=== PATIENT | male | born 1960 | race Two or more races ===

== ENCOUNTER 2019-11-21 00:44 | Inpatient (IN) | payer OTHER, MEDICAID ==
[~2019-11-21] VITALS: Ht 144.8 cm; Wt 135.2 kg
[2019-11-21] MEDS ORDERED: IV NS 0.9% 500 ML BAG IV ONE (01:00)
--- NOTE | 2019-11-21 01:10 | NUR ---
BLOOD DRAWN AND SENT TO LAB
[2019-11-21 01:18] LABS: BASOPHILS # (AUTO) 0.1 /CMM (0.0-0.2); BASOPHILS % (AUTO) 0.8 % (0.0-2.0); EOSINOPHILS % (AUTO) 5.1 % (0.0-6.0); HEMATOCRIT 38 % (39-51); HEMOGLOBIN 12.2 g/dL (13.5-17.5); LYMPHOCYTES # (AUTO) 4.1 /CMM (0.8-4.8); LYMPHOCYTES % (AUTO) 35.8 % (20.0-44.0); MEAN CORPUSCULAR HGB CONC 32 g/dl (31.0-36.0); MEAN CORPUSCULAR VOLUME 78 fL (80-96); MONOCYTES # (AUTO) 0.9 /CMM (0.1-1.30); MONOCYTES % (AUTO) 8.1 % (2.0-12.0); NEUTROPHILS # (AUTO) 5.8 /CMM (1.8-8.9); NEUTROPHILS % (AUTO) 50.2 % (43.0-81.0); PLATELET COUNT (AUTO) 274 /CMM (150-450); RED BLOOD CELL COUNT(AUTO) 4.88 MIL/uL (4.5-6.0); WHITE BLOOD COUNT (AUTO) 11.5 K/uL (4.3-11.0)
--- NOTE | 2019-11-21 01:18 | NUR ---
XRAY AT BEDSIDE
[2019-11-21 01:27] LABS: CALCIUM, SERUM 10.7 mg/dL (8.5-10.1); CARBON DIOXIDE 28 mmol/L (21-32); CHLORIDE 104 mmol/L (98-107); CREATININE 0.8 mg/dL (0.6-1.3); GLUCOSE 170 mg/dL (74-106); POTASSIUM 4.1 mmol/L (3.5-5.1); SODIUM SERUM 137 mmol/L (136-145); UREA NITROGEN, BLOOD 13 mg/dL (7-18)
[2019-11-21 01:41] LABS: ALANINE AMINOTRANSFERASE 16 U/L (12-78); ALBUMIN 2.8 g/dL (3.4-5.0); ALKALINE PHOSPHATASE 71 U/L (46-116); ASPARTATE AMINOTRANSFERASE 10 U/L (15-37); B-TYPE NATRIURETIC PEPTIDE 219 PG/ML (0-125); BILIRUBIN,TOTAL 0.2 mg/dL (0.2-1.0); TOTAL PROTEIN, SERUM 6.6 g/dL (6.4-8.2)
--- NOTE | 2019-11-21 01:42 | NUR ---
PATIENT CAME TO ER BED 9 C/O SUBSTERNAL CHEST PAIN 45 SQUEEGEER AND FORMER. PATIENT CAME FROM [facility] FOR NONRADIATING CHEST PAIN 06/08 SHARP. AAOX4. NO SOB. BREATHING EVENLY AND UNLABORED CONNECTED TO HEART MONITORING.
[2019-11-21] MEDS ORDERED: MORPHINE SULFATE INJ 4 MG/ML DISP.SYRIN ONE (01:55)
--- NOTE | 2019-11-21 01:56 | NUR ---
ROOM GIVEN [id number]
--- NOTE | 2019-11-21 02:23 | NUR ---
REPORT GIVEN TO RIGO FOR ZIYAD.
[2019-11-21] MEDS ORDERED: MORPHINE SULFATE INJ 4 MG/ML DISP.SYRIN IV ONE (02:30)
[2019-11-21] MEDS ORDERED: TAMS-12 GT (02:44)
[2019-11-21] MEDS ORDERED: ERTA1VIA4 IJ (02:44)
[2019-11-21] MEDS ORDERED: LEVE500T9 PO (02:44)
[2019-11-21] MEDS ORDERED: LISPRO SUBCUT (02:44)
[2019-11-21] MEDS ORDERED: OXYB5TAB16 PO (02:44)
[2019-11-21] MEDS ORDERED: ASPI-605 PO (02:44)
[2019-11-21] MEDS ORDERED: GLARGINE SUBCUT (02:44)
[2019-11-21] MEDS ORDERED: LEVO150T8 PO (02:44)
[2019-11-21] MEDS ORDERED: FAMO20TA8 PO (02:44)
[2019-11-21] MEDS ORDERED: DIVA500T2 GT (02:44)
[2019-11-21] MEDS ORDERED: CARV12.52 PO (02:44)
[2019-11-21] MEDS ORDERED: HYDR-4076 PO (02:44)
[2019-11-21 03:30] VITALS: BP 138/66
[2019-11-21] MEDS ORDERED: ONDANSETRON HCL/PF 4 MG/2 ML VIAL IVP PRN (03:30)
[2019-11-21] MEDS ORDERED: DOCUSATE SODIUM 100 MG CAPSULE PO PRN (03:30)
[2019-11-21] MEDS ORDERED: NITROGLYCERIN 0.4 MG/TAB BOTTLE SL PRN (03:30)
[2019-11-21] MEDS ORDERED: MAG HYDROX/AL HYDROX/SIMETH 30 ML UDC PO PRN (03:30)
--- NOTE | 2019-11-21 03:30 | NUR ---
AEROSPACE CONTROL AND WARNING SYSTEMS OPENING/ADMITTING NOTES RECEIVED PATIENT FROM ER VIA GURNEY SAFELY TRANSFERRED TO BED, AWAKE ALERT AND ORIENTED X 4, RESPIRATIONS EVEN AND UNLABORED WITH EQUAL RISE AND FALL OF CHEST, APPEARS TO BE COMFORTABLE AT THIS TIME, NO C/O PAIN AT THIS TIME, NO DISTRESS PRESENT, IV SITE TO RIGHT WRIST #20 G INTACT AND PATENT, NO REDNESS, NO INFILTRATION PRESENT, GOOD CATHETER INTACT AND DRAINING WELL, URINE YELLOW/CT WITH SEDIMENTS.ON ENDODONTICS DENTIST SR 74.BODY ASSESSMENT DONE PICTURES PLACED IN CHART, BELONGINGS LIST DONE 2 CALL PHONES, MONEY WALLET AND SCISSORS PLACED IN SAFE BOX, RECEIPT PLACED IN CHART PATIENT AWARE, ORIENTED TO STAFF AND CALL LIGHT AND KEPT WITHIN REACH, FLUIDS OFFERED, MD ORDERS FOLLOWED MED RECON IN PLACE. LOW BED AND LOCKED, BED ALARM IN PLACE, PATIENT CLEAN AND KEPT COMFORTABLE WILL CONTINUE TO MONITOR.
[2019-11-21 04:00] VITALS: BP 138/66
[2019-11-21] MEDS: MORPHINE SULFATE INJ 2 MG/ML DISP.SYRIN IV PRN ×4 (05:17→23:33)
--- NOTE | 2019-11-21 05:17 | NUR ---
consumer attorney notes patient complaint of pain to chest generalized area no distress present vs wnl. states head neck, back, shoulders states " can i have morphine 10/10" morphine prn given as ordered lights dimmed will continue to monitor for comfort.
--- NOTE | 2019-11-21 06:56 | NUR ---
MANAGER COMMERCIAL SALES CLOSING NOTES PATIENT AWAKE ALERT AND ORIENTED X 4, RESPIRATIONS EVEN AND UNLABORED WITH EQUAL RISE AND FALL OF CHEST, APPEARS TO BE COMFORTABLE AT THIS TIME, NO C/O PAIN AT THIS TIME, NO DISTRESS PRESENT, IV SITE TO RIGHT WRIST #20 G INTACT AND PATENT, NO REDNESS, NO INFILTRATION PRESENT, GOOD CATHETER INTACT AND DRAINING WELL, URINE YELLOW/CT WITH SEDIMENTS.ON TIE IN HAND SR WITH 1ST DEGREE AC BLOCK 65.CALL LIGHT KEPT WITHIN REACH, FLUIDS OFFERED, LOW BED AND LOCKED, BED ALARM IN PLACE, PATIENT CLEAN AND KEPT COMFORTABLE WILL CONTINUE TO MONITOR AND ENDORSE TO NEXT SHIFT NO CHANGES SINCE ADMISSION.
[2019-11-21] MEDS ORDERED: LEVOTHYROXINE SODIUM 150 MCG TABLET PO SCH (07:30)
[2019-11-21 08:00] VITALS: BP 139/71
[2019-11-21] MEDS: INSULIN ASPART/LISPRO 100 UNIT/ML CARTRIDGE SQ SCH ×3 (08:00→18:01)
[2019-11-21 08:22] LABS: CALCIUM, SERUM 10.4 mg/dL (8.5-10.1); CREATININE 0.7 mg/dL (0.6-1.3); MAGNESIUM 1.7 mg/dL (1.8-2.4); PHOSPHORUS 2.6 mg/dL (2.5-4.9); POTASSIUM 4.1 mmol/L (3.5-5.1)
[2019-11-21 08:27] LABS: BASOPHILS # (AUTO) 0.1 /CMM (0.0-0.2); BASOPHILS % (AUTO) 0.8 % (0.0-2.0); EOSINOPHILS % (AUTO) 5.5 % (0.0-6.0); HEMATOCRIT 38 % (39-51); HEMOGLOBIN 12.2 g/dL (13.5-17.5); LYMPHOCYTES # (AUTO) 4.1 /CMM (0.8-4.8); LYMPHOCYTES % (AUTO) 37.5 % (20.0-44.0); MEAN CORPUSCULAR HGB CONC 32 g/dl (31.0-36.0); MEAN CORPUSCULAR VOLUME 78 fL (80-96); MONOCYTES % (AUTO) 9.3 % (2.0-12.0); NEUTROPHILS # (AUTO) 5.1 /CMM (1.8-8.9); NEUTROPHILS % (AUTO) 46.9 % (43.0-81.0); PLATELET COUNT (AUTO) 241 /CMM (150-450); RED BLOOD CELL COUNT(AUTO) 4.87 MIL/uL (4.5-6.0); WHITE BLOOD COUNT (AUTO) 10.8 K/uL (4.3-11.0)
[2019-11-21 08:58] LABS: APPEARANCE,URINE CLEAR (CLEAR); BILIRUBIN,URINE NEGATIVE (NEGATIVE); BLOOD, URINE SMALL Ery/uL (NEGATIVE); COLOR,URINE YELLOW (YELLOW); KETONES,URINE NEGATIVE (NEGATIVE); LEUKOCYTE ESTERASE ,URINE NEGATIVE (NEGATIVE); NITRITE, URINE NEGATIVE (NEGATIVE); PH,URINE 6.5 (5.0-8.0); PROTEIN,URINE NEGATIVE (NEGATIVE); UGLUCOSE NEGATIVE (NEGATIVE); UROBILINOGEN,URINE 0.2 EU/dL (0.2)
[2019-11-21] MEDS ORDERED: CARVEDILOL 12.5 MG TABLET PO SCH (09:00)
[2019-11-21] MEDS: LOSARTAN POTASSIUM 50 MG TABLET PO SCH (09:00)
[2019-11-21] MEDS: hydrALAZINE HCL 25 MG TABLET PO SCH ×3 (09:00→17:00)
[2019-11-21] MEDS: INSULIN GLARGINE, 100 UNIT/ML CARTRIDGE SQ SCH ×2 (09:00→18:07)
[2019-11-21 09:03] LABS: THYROID STIMULATING HORMONE 10.674 uIU/mL (0.358-3.74)
[2019-11-21 09:08] LABS: BACTERIA,URINE Rare /HPF (None Seen); SQUAMOUS EPITHELIAL CELL,UR Rare /HPF (None Seen); WBC,URINE 0-2 /HPF (0-3)
[2019-11-21 09:10] LABS: IRON, SERUM 30 ug/dl (50-175); TOTAL IRON BINDING CAPACITY 219 ug/dl (250-450)
--- NOTE | 2019-11-21 09:14 | NUR ---
WOUND CARE CONSULT: PT PRESENTS WITH RASHES TO SKIN FOLDS AND BUTTOCKS, DRY SCAB BELOW LEFT EAR AND CRUSTED WOUND TO RT CHEST, PRESENT ON ADMISSION. BILATERAL ABOVE KNEE AMPUTATION SCARS NOTED. RECOMMEND SURGICAL CONSULT FOR RT CHEST WOUND. DR MARIE NOTIFIED OF CONSULT REQUEST. PT ON ROSIE ISOFLEX LOW AIRLOSS BED AND STATES BED IS COMFORTABLE AND REFUSES BARIATRIC BED. LATISHA COPE NOTED. PT IS CONTINENT AT THIS TIME WITH GOOD. RECOMMENDATIONS MADE FOR SKIN PROTECTION. DISCUSSED WITH NURSING STAFF. DEFER TO SURGICAL TEAM FOR WOUND TREATMENT PLAN. WILL SEE PRN. Addendum: 11/21/19 at 0917 by EMELINA LEON WNDNU Amended: Links added.
[2019-11-21 09:24] LABS: FERRITIN 50 ng/mL (8-388)
[2019-11-21] MEDS ORDERED: Z GUARD REMEDY 2 OZ OINT TP PRN (09:30)
[2019-11-21] MEDS: Magnesium 1GM/D5W 100ML PREMIX 100 ML IV SCH ×2 (09:45→11:18)
[2019-11-21] MEDS: BLOOD SUGAR DIAGNOSTIC 1 EACH STRIP IN SCH ×3 (09:52→17:45)
[2019-11-21] MEDS: Z GUARD REMEDY 2 OZ OINT TP SCH (11:24)
[2019-11-21] MEDS: TAMSULOSIN 0.4 MG CAP.SR.24H GT SCH (11:35)
[2019-11-21] MEDS: DIVALPROEX SODIUM 125 MG TABLET.DR PO SCH ×3 (11:35→18:00)
[2019-11-21] MEDS: LEVETIRACETAM (250 MG) 250 MG TABLET PO SCH ×2 (11:35→21:18)
[2019-11-21] MEDS: OXYBUTYNIN CHLORIDE 5 MG TABLET PO SCH ×2 (11:35→18:00)
[2019-11-21] MEDS: ASPIRIN 81 MG TAB.CHEW PO SCH (11:35)
[2019-11-21] MEDS: FAMOTIDINE (20 MG) 20 MG TABLET PO SCH ×2 (11:35→18:00)
[2019-11-21] MEDS: CARVEDILOL 12.5 MG TABLET PO SCH ×2 (11:36→18:00)
[2019-11-21] MEDS: LEVOTHYROXINE SODIUM 75 MCG TABLET PO SCH ×2 (12:05→12:55)
[2019-11-21] MEDS ORDERED: Magnesium 1GM/D5W 100ML PREMIX 100 ML IV SCH (13:30)
[2019-11-21 16:00] VITALS: BP 115/74
[2019-11-21] MEDS: NEOMY SULF/BACITRAC ZN/POLY 15 GM TUBE TP SCH (17:58)
[2019-11-21] MEDS: NYSTATIN TOP POWDER 15 GM BOTTLE TP SCH ×2 (17:59→18:08)
--- NOTE | 2019-11-21 18:30 | NUR ---
medicated x1 with morphine for pain.mg. replacement for low mg.
--- NOTE | 2019-11-21 19:20 | NUR ---
RN OPENING NOTES Received patient A/O x4, awake, on RA. With complaints of generalized pain 10/10. Repositioned comfortably. Provided snacks as patient demands. Discussed to patient the POC, patient verbalized understanding. Patient refused to have his blood sugar checked within the night. On tele monitor with 1st degree AV block noted. Kept on bed clean, dry and comfortable. Call light within easy reach. Will continue to monitor.
[2019-11-21 20:00] VITALS: BP 143/80
[2019-11-21] MEDS: SIMVASTATIN 20 MG TABLET PO SCH (21:18)
--- NOTE | 2019-11-21 22:14 | NUR ---
RN NOTES Patient asleep. Report given to HAFSA Martinez for ZIYAD.
--- NOTE | 2019-11-21 22:16 | NUR ---
Bedside report recieved from jorge tristan. will assume care. patient seen resting in bed with eyes closed bed down locked srx2. call light seen within reach.
[2019-11-22] VITALS: BP 130/59
--- NOTE | 2019-11-22 01:19 | NUR ---
MS RN NOTE ADMINISTERED PRN ZOFRRAN 4NG FOR C/O NAUSEA. WILL CONTINUE TO MONITOR.
[2019-11-22] MEDS: MORPHINE SULFATE INJ 2 MG/ML DISP.SYRIN IV PRN ×5 (03:46→20:29)
[2019-11-22 04:00] VITALS: BP 127/73
[2019-11-22 07:07] LABS: BASOPHILS # (AUTO) 0.1 /CMM (0.0-0.2); BASOPHILS % (AUTO) 1.1 % (0.0-2.0); EOSINOPHILS % (AUTO) 5.7 % (0.0-6.0); HEMATOCRIT 37 % (39-51); HEMOGLOBIN 12.1 g/dL (13.5-17.5); LYMPHOCYTES # (AUTO) 3.8 /CMM (0.8-4.8); MEAN CORPUSCULAR HGB CONC 33 g/dl (31.0-36.0); MEAN CORPUSCULAR VOLUME 77 fL (80-96); MONOCYTES % (AUTO) 7.8 % (2.0-12.0); NEUTROPHILS # (AUTO) 6.6 /CMM (1.8-8.9); NEUTROPHILS % (AUTO) 54.4 % (43.0-81.0); PLATELET COUNT (AUTO) 257 /CMM (150-450); RED BLOOD CELL COUNT(AUTO) 4.82 MIL/uL (4.5-6.0); WHITE BLOOD COUNT (AUTO) 12.2 K/uL (4.3-11.0)
[2019-11-22] MEDS: LEVOTHYROXINE SODIUM 75 MCG TABLET PO SCH (07:12)
--- NOTE | 2019-11-22 07:22 | NUR ---
TELE/RN OPENING NOTE Patient is resting in bed, A/O x4, showing no signs of acute distress or SOB, breathing is even and unlabored, stable on RA. Tele monitor first degree AV block 67. BLE AKA noted. IV line in the right wrist #20g is clean and intact s/l. Bed is in lowest position, side rails x3 in upright position, call light is within reach and patient is aware of how to call for assistance when needed. Fall, safety, aspiration and seizure precautions enforced. Will continue with plan of care.
[2019-11-22] MEDS: INSULIN ASPART/LISPRO 100 UNIT/ML CARTRIDGE SQ SCH ×3 (07:23→17:14)
[2019-11-22 07:26] LABS: CALCIUM, SERUM 10.1 mg/dL (8.5-10.1); CREATININE 0.7 mg/dL (0.6-1.3); MAGNESIUM 1.8 mg/dL (1.8-2.4); POTASSIUM 4.2 mmol/L (3.5-5.1)
[2019-11-22] MEDS: BLOOD SUGAR DIAGNOSTIC 1 EACH STRIP IN SCH ×3 (08:36→17:14)
[2019-11-22] MEDS: LEVETIRACETAM (250 MG) 250 MG TABLET PO SCH ×2 (08:42→21:18)
[2019-11-22] MEDS: TAMSULOSIN 0.4 MG CAP.SR.24H GT SCH (08:42)
[2019-11-22] MEDS: FAMOTIDINE (20 MG) 20 MG TABLET PO SCH ×2 (08:42→17:08)
[2019-11-22] MEDS: hydrALAZINE HCL 25 MG TABLET PO SCH ×3 (08:42→17:08)
[2019-11-22] MEDS: CARVEDILOL 12.5 MG TABLET PO SCH ×2 (08:43→17:08)
[2019-11-22] MEDS: OXYBUTYNIN CHLORIDE 5 MG TABLET PO SCH ×2 (08:43→17:08)
[2019-11-22] MEDS: LOSARTAN POTASSIUM 50 MG TABLET PO SCH (08:43)
[2019-11-22] MEDS: ASPIRIN 81 MG TAB.CHEW PO SCH (08:43)
[2019-11-22] MEDS: DIVALPROEX SODIUM 125 MG TABLET.DR PO SCH ×3 (08:43→17:08)
[2019-11-22] MEDS: INSULIN GLARGINE, 100 UNIT/ML CARTRIDGE SQ SCH ×2 (08:46→17:16)
[2019-11-22] MEDS: NEOMY SULF/BACITRAC ZN/POLY 15 GM TUBE TP SCH (08:49)
[2019-11-22] MEDS: NYSTATIN TOP POWDER 15 GM BOTTLE TP SCH ×2 (08:49→17:15)
[2019-11-22] MEDS: Z GUARD REMEDY 2 OZ OINT TP SCH (08:50)
[2019-11-22] MEDS ORDERED: PNEUMOCOCCAL 23-VAL P-SAC VAC 0.5 ML VIAL SQ ONE ×2 (11:30→12:00)
[2019-11-22] MEDS ORDERED: INFLUENZA VACCINE 2019-20 0.5 ML DISP.SYRIN IM ONE (11:30)
[2019-11-22 16:00] VITALS: BP 123/76
--- NOTE | 2019-11-22 19:36 | NUR ---
CORRECTIONS SERGEANT NOTES PATIENT RECEIVED IN BED, ALERT AND ORIENTED X4. ON ROOM AIR, PRESENTING NO SIGNS OF RESPIRATORY DISTRESS, WITH EVEN NON-LABORED BREATHING. IV ACCESS INTACT AND PATENT. PATIENT ON PHYSICAL THERAPY ASSISTANT INSTRUCTOR, 70'S. PATIENT GOOD CATHETER IN PLACE WITH YELLOW URINE OUTPUT. PROVIDED COMFORT MEASURES TO PATIENT. SAFETY PRECAUTIONS AND FALL PRECAUTIONS IMPLEMENTED WITH THE BED IN THE LOWEST POSITION, BILATERAL SIDE RAILS UP, BED ALARM ON, BED LOCKED, AND CALL LIGHT WITHIN EASY REACH OF THE PATIENT. WILL CONTINUE TO MONITOR PATIENT.
--- NOTE | 2019-11-22 19:44 | NUR ---
TELE/RN CLOSING NOTE Patient is resting in bed, A/O x4, showing no signs of acute distress or SOB, breathing is even and unlabored, stable on RA. Tele monitor SR 80s. BLE AKA noted. IV line in the right wrist #20g is clean and intact s/l. All patient needs met all due meds given. DC order back to [facility] at 9pm. DC instructions provided, patient verbalized understanding. Belongings obtained from [employer]. Bed is in lowest position, side rails x3 in upright position, call light is within reach and patient is aware of how to call for assistance when needed. Fall, safety, aspiration and seizure precautions enforced. Will endorse to stage driver. .
[2019-11-22 20:28] VITALS: BP 118/63
--- NOTE | 2019-11-22 20:30 | NUR ---
RN NOTES PATIENT COMPLAIN OF 10/10 GENERALIZED ACHING, SHARP PAIN. PATIENT'S VITALS ARE BLOOD PRESSURE OF 118/63, PULSE 70, RESPIRATORY RATE 20, SPO2 98%. ADMINISTERED 2mg OF MORPHINE PRN PAIN MEDICATION, WILL REASSESS AND WILL CONTINUE TO MONITOR PATIENT PAIN LEVEL.
[2019-11-22] MEDS: SIMVASTATIN 20 MG TABLET PO SCH (21:18)
--- NOTE | 2019-11-22 23:50 | NUR ---
MS RN NOTES PATIENT LEFT UNIT AT 2345 VIA [employer] [facility]. PATIENT'S ID BAND, IV ACCESS REMOVED. DISCHARGE INSTRUCTIONS IMPLEMENTED. PER DAYSHIFT ENDORSED, GAVE REPORT TO NEERAJ AQUINO. PATIENT'S LEFT WITH ALL BELONGINGS.
[2019-11-30] MEDS ORDERED: LEVO500T75 PO (08:45)
== END 2019-11-22 23:45 | DRG 204 ==
LOC: ER 00:45 → TELE 02:00 → MED 11-22 21:38
PROVIDERS: ADMIT Family Medicine; ATTEND Family Medicine
DX: R07.81 Pleurodynia (principal); R53.2 Functional quadriplegia; E44.0 Moderate protein-calorie malnutrition; Z68.44 Body mass index [BMI] 60.0-69.9, adult; D72.829 Elevated white blood cell count, unspecified; I10 Essential (primary) hypertension; D50.9 Iron deficiency anemia, unspecified; E83.42 Hypomagnesemia; E03.9 Hypothyroidism, unspecified; E11.65 Type 2 diabetes mellitus with hyperglycemia; R56.9 Unspecified convulsions; E66.01 Morbid (severe) obesity due to excess calories; L98.8 Other specified disorders of the skin and subcutaneous tissue; L30.4 Erythema intertrigo; S20.312A Abrasion of left front wall of thorax, initial encounter; S20.311A Abrasion of right front wall of thorax, initial encounter; X58.XXXA Exposure to other specified factors, initial encounter; Y92.89 Other specified places as the place of occurrence of the external cause; Z89.612 Acquired absence of left leg above knee; Z89.611 Acquired absence of right leg above knee; E83.52 Hypercalcemia; E11.51 Type 2 diabetes mellitus with diabetic peripheral angiopathy without gangrene; R10.9 Unspecified abdominal pain; G47.33 Obstructive sleep apnea (adult) (pediatric)
CPT/HCPCS: 36415; 71045-TC; 80048-TC; 80061-TC; 80076-TC; 80164-TC; 81000-TC; 82728-TC; 82962-TC; 83540-TC; 83735-TC; 83880; 84100-TC; 84443-TC; 84484-TC; 85025-TC; 85730-TC; 87081-TC; 90732; 93307-TC; G0378; J1815; J2270; J2405; J3475; J7040; J7050; Q2036

== ENCOUNTER 2019-11-28 07:10 | Inpatient (IN) | payer OTHER ==
[~2019-11-28] VITALS: Ht 139.7 cm; Wt 131.6 kg
[~2019-11-28 07:10] MED LIST: ASPI-605 PO; CARV12.52 PO; DIVA500T2 GT; ERTA1VIA4 IJ; FAMO20TA8 PO; GLARGINE SUBCUT; HYDR-4076 PO; LEVE500T9 PO; LEVO150T8 PO; LISPRO SUBCUT; OXYB5TAB16 PO; TAMS-12 GT
--- NOTE | 2019-11-28 07:30 | NUR ---
[id number] FROM [facility] C/O MIDSTERNAL CHEST PAIN RADIATING TO R ARM. +DRY COUGH, -FEVER, +GENERALIZED BODY ACHE. PATIENT A/OX4, NOTED WITH COUGHING, NON-PRODUCTIVE. NEEDS ATTENDED. ATTACHED TO THE QUILL STRIPPER.
[2019-11-28] MEDS ORDERED: ONDANSETRON HCL/PF 4 MG/2 ML VIAL ONE (07:39)
[2019-11-28] MEDS ORDERED: MORPHINE SULFATE INJ 4 MG/ML DISP.SYRIN ONE ×2 (07:39→11:43)
[2019-11-28] MEDS ORDERED: ONDANSETRON HCL/PF 4 MG/2 ML VIAL IVP ONE (08:00)
[2019-11-28] MEDS ORDERED: MORPHINE SULFATE INJ 2 MG/ML DISP.SYRIN IV ONE (08:00)
--- NOTE | 2019-11-28 08:26 | NUR ---
LINE STARTED ON R AC G 20, BLOOD AND CULTURES DRAWN FROM LINE AND SENT TO LAB
[2019-11-28 09:04] LABS: BASOPHILS # (AUTO) 0.1 /CMM (0.0-0.2); EOSINOPHILS % (AUTO) 4.7 % (0.0-6.0); HEMATOCRIT 40 % (39-51); HEMOGLOBIN 12.7 g/dL (13.5-17.5); LYMPHOCYTES # (AUTO) 3.8 /CMM (0.8-4.8); LYMPHOCYTES % (AUTO) 26.1 % (20.0-44.0); MEAN CORPUSCULAR HGB CONC 32 g/dl (31.0-36.0); MEAN CORPUSCULAR VOLUME 78 fL (80-96); MONOCYTES # (AUTO) 1.2 /CMM (0.1-1.30); MONOCYTES % (AUTO) 7.9 % (2.0-12.0); NEUTROPHILS # (AUTO) 8.9 /CMM (1.8-8.9); NEUTROPHILS % (AUTO) 60.3 % (43.0-81.0); PLATELET COUNT (AUTO) 328 /CMM (150-450); RED BLOOD CELL COUNT(AUTO) 5.11 MIL/uL (4.5-6.0); WHITE BLOOD COUNT (AUTO) 14.7 K/uL (4.3-11.0)
[2019-11-28 09:13] LABS: CALCIUM, SERUM 10.6 mg/dL (8.5-10.1); CARBON DIOXIDE 26 mmol/L (21-32); CHLORIDE 103 mmol/L (98-107); CREATININE 1.1 mg/dL (0.6-1.3); GLUCOSE 167 mg/dL (74-106); SODIUM SERUM 137 mmol/L (136-145); UREA NITROGEN, BLOOD 17 mg/dL (7-18)
[2019-11-28 09:25] LABS: ALBUMIN 2.9 g/dL (3.4-5.0); ALKALINE PHOSPHATASE 82 U/L (46-116); ASPARTATE AMINOTRANSFERASE 9 U/L (15-37); B-TYPE NATRIURETIC PEPTIDE 111 PG/ML (0-125); BILIRUBIN,DIRECT 0.1 mg/dL (0.0-0.2); BILIRUBIN,TOTAL 0.3 mg/dL (0.2-1.0); TOTAL PROTEIN, SERUM 7.2 g/dL (6.4-8.2)
[2019-11-28 09:34] LABS: ALANINE AMINOTRANSFERASE 16 U/L (12-78)
[2019-11-28 10:13] LABS: APPEARANCE,URINE Clear (CLEAR); BILIRUBIN,URINE Negative (NEGATIVE); BLOOD, URINE Trace-lysed Ery/uL (NEGATIVE); COLOR,URINE Yellow (YELLOW); KETONES,URINE Negative (NEGATIVE); LEUKOCYTE ESTERASE ,URINE Trace (NEGATIVE); NITRITE, URINE Negative (NEGATIVE); PROTEIN,URINE >=300 mg/dl (NEGATIVE); UGLUCOSE Negative (NEGATIVE); UROBILINOGEN,URINE 0.2 EU/dL (0.2)
[2019-11-28 10:18] LABS: BACTERIA,URINE Few /HPF (None Seen); HYALINE CASTS, URINE Few /LPF (None Seen); SQUAMOUS EPITHELIAL CELL,UR None Seen /HPF (None Seen)
--- NOTE | 2019-11-28 10:28 | NUR ---
PATIENT RESTING, NO DISTRESS NOTED.
[2019-11-28] MEDS ORDERED: CEFTRIAXONE 1GM BAG (ER ONLY) 50 ML IV ONE ×2 (10:30→10:34)
--- NOTE | 2019-11-28 11:16 | NUR ---
recieved auth from regal per admitting
--- NOTE | 2019-11-28 11:25 | NUR ---
CALLED NURSING SUP FOR BED
[2019-11-28] MEDS ORDERED: MORPHINE SULFATE INJ 4 MG/ML DISP.SYRIN IV ONE (12:00)
--- NOTE | 2019-11-28 12:24 | NUR ---
REPORT GIVEN TO MONA PEREYRA FOR ZIYAD.
--- NOTE | 2019-11-28 12:54 | NUR ---
PATIENT TRANSFERRED TO ROOM 105, IN STABLE CONDITION. NO DISTRESS NOTED.
[2019-11-28 14:00] VITALS: BP 111/62
[2019-11-28] MEDS ORDERED: LORAZEPAM INJ 2 MG/ML VIAL IV ONE (14:00)
[2019-11-28] MEDS ORDERED: OLANZAPINE 10 MG VIAL IM ONE (14:00)
--- NOTE | 2019-11-28 14:20 | NUR ---
RN NOTE RAPID RESPONSE CALLED AT 1330 FOR PT SEIZURE. PRIMARY RN AT BEDSIDE WITH JO WELLS, ASSISTING PT., DR GOLDEN CONTACTED, ORDER FOR ZYPREXA IM AND ATIVAN IV OBTAINED, PT HAD SEIZURE FOR 30 MIN. SIDE RAILS PADDED, OXYGEN VIA NONREBREATHER MASK APPLIED, VS: 99.8F, AX, HR 98, BP 111/62MMHG, RR 22, SATURATION 98-100%. BG =129, PT DID NOT VOMIT, PT ASSISTED TO THE LEFT SIDE. POST SEIZURE PT AOX3, CO SEVERE PAIN IN NECK AND HEAD, ARMS, TIRED. DR GOLDEN ASSESSED HIM POST SEIZURE. PT ABLE TO SWALLOW, AND TALK.
[2019-11-28] MEDS ORDERED: LORAZEPAM 1 MG TABLET PO PRN (14:30)
[2019-11-28] MEDS: MORPHINE SULFATE INJ 4 MG/ML DISP.SYRIN IV PRN ×2 (14:39→21:00)
[2019-11-28] MEDS ORDERED: CLONIDINE HCL 0.1 MG TABLET PO PRN (15:00)
[2019-11-28] MEDS ORDERED: DEXTROSE 50%-WATER 50 ML DISP.SYRIN IV PRN (15:00)
[2019-11-28] MEDS ORDERED: LEVOFLOXACIN (500MG) 500 MG TABLET PO SCH (15:00)
[2019-11-28 16:00] VITALS: BP 112/52
[2019-11-28] MEDS: FAMOTIDINE (20 MG) 20 MG TABLET PO SCH (16:44)
[2019-11-28] MEDS: DIVALPROEX SODIUM 125 MG TABLET.DR PO SCH (16:44)
[2019-11-28] MEDS: CARVEDILOL 12.5 MG TABLET PO SCH (16:47)
[2019-11-28] MEDS: OXYBUTYNIN CHLORIDE 5 MG TABLET PO SCH (16:47)
[2019-11-28] MEDS: hydrALAZINE HCL 25 MG TABLET PO SCH (16:55)
[2019-11-28] MEDS: BLOOD SUGAR DIAGNOSTIC 1 EACH STRIP VI SCH ×2 (17:05→20:53)
[2019-11-28] MEDS: INSULIN ASPART/LISPRO 100 UNIT/ML CARTRIDGE SQ SCH (17:49)
--- NOTE | 2019-11-28 19:30 | NUR ---
DEVELOPER ADVOCATE OPENING NOTE RECEIVED PATIENT IN BED. A/OX4. ON OXYGEN 2L/MIN VIA NASAL CANNULA. RESPIRATIONS ARE EVEN AND UNLABORED, NO S/S SOB NOTED. NO S/S PAIN AT THIS TIME. EXTERNAL TELE MONITOR READS SR HR 74. IN NO APPARENT DISTRESS AT THIS TIME. IV ACCESS IN KARIME MIDLINE CURRENTLY SALINE LOCKED. GOOD CATHETER IS PRESENT, DRAINING TO GRAVITY. BED IS LOW AND LOCKED, HOB ELEVATED IN SEMI FOWLERS, SIDE RIALS UP X 4, SEIZURE PRECAUTIONS IN PLACE, BED ALARM ON. CALL LIGHT WITHIN REACH. WILL CONTINUE TO MONITOR.
[2019-11-28 20:00] VITALS: BP 121/57
[2019-11-28 20:15] VITALS: BP 111/62
[2019-11-28] MEDS: LEVETIRACETAM (250 MG) 250 MG TABLET PO SCH (20:41)
[2019-11-28] MEDS ORDERED: INSULIN GLARGINE, 100 UNIT/ML CARTRIDGE SQ SCH ×2 (21:00→22:00)
--- NOTE | 2019-11-28 21:01 | NUR ---
PRIVACY ANALYST NOTE ADMINISTERED PRN MORPHINE 4MG FOR PAIN 10 GENERALIZED. WILL CONTINUE TO MONITOR.
[2019-11-29] VITALS: BP 115/55
[2019-11-29 04:00] VITALS: BP 115/62
[2019-11-29] MEDS: MORPHINE SULFATE INJ 4 MG/ML DISP.SYRIN IV PRN ×3 (04:59→18:49)
--- NOTE | 2019-11-29 04:59 | NUR ---
MANAGER SHIP NOTE ADMINISTERE PRN MORPHINE 4MG FOR PAIN 10/10, GENERALIZED.W ILL CONTINUE TO MONITOR.
[2019-11-29 06:38] LABS: BASOPHILS # (AUTO) 0.1 /CMM (0.0-0.2); BASOPHILS % (AUTO) 0.9 % (0.0-2.0); EOSINOPHILS % (AUTO) 6.4 % (0.0-6.0); HEMATOCRIT 37 % (39-51); HEMOGLOBIN 12.1 g/dL (13.5-17.5); LYMPHOCYTES # (AUTO) 1.5 /CMM (0.8-4.8); LYMPHOCYTES % (AUTO) 13.6 % (20.0-44.0); MEAN CORPUSCULAR HGB CONC 33 g/dl (31.0-36.0); MEAN CORPUSCULAR VOLUME 76 fL (80-96); MONOCYTES % (AUTO) 9.2 % (2.0-12.0); NEUTROPHILS # (AUTO) 7.5 /CMM (1.8-8.9); NEUTROPHILS % (AUTO) 69.9 % (43.0-81.0); PLATELET COUNT (AUTO) 245 /CMM (150-450); RED BLOOD CELL COUNT(AUTO) 4.81 MIL/uL (4.5-6.0); WHITE BLOOD COUNT (AUTO) 10.8 K/uL (4.3-11.0)
[2019-11-29 06:39] LABS: CALCIUM, SERUM 9.8 mg/dL (8.5-10.1); CREATININE 0.8 mg/dL (0.6-1.3); POTASSIUM 4.6 mmol/L (3.5-5.1)
--- NOTE | 2019-11-29 06:50 | NUR ---
PARA MACHINE OPERATOR CLOSING NOTE PATIENT IN BED. A/OX4. ON OXYGEN 2L/MIN VIA NASAL CANNULA. RESPIRATIONS ARE EVEN AND UNLABORED, NO SOB NOTED. PAIN MANAGED WITH MORPHINE THROUGHOUT SHIFT. EXTERNAL TELE MONITOR READS SR HR 74. NO DISTRESS NOTED THROUGHOUT SHIFT. IV ACCESS IN KARIME MIDLINE PATENT AND SALINE LOCKED. GOOD CATHETER IS MAINTAINED, DRAINING TO GRAVITY, OUTPUT 800ML. BED IS LOW AND LOCKED, HOB ELEVATED IN SEMI FOWLERS, SIDE RIALS UP X 4, SEIZURE PRECAUTIONS IN PLACE, BED ALARM ON. CALL LIGHT WITHIN REACH. WILL ENDORSE TO NEXT SHIFT
--- NOTE | 2019-11-29 07:20 | NUR ---
RN opening note: Received patient in bed. Awake, alert and oriented x4. On cont. 02 via NC @2lpm and tolerating well. No SOB, No respiratory distress noted. IV site clean, dry, patent and intact. IV site clean, dry, patent and intact. Tele monitor showing Sinus rhythm noted. Isolation precautions strictly observed. Call light in reach. Side rails up x3. Bed locked, low and at semi-mckeon's position. Safety ensured and observed. Seizure precaution in place.Will continue to monitor.
[2019-11-29] MEDS: INSULIN ASPART/LISPRO 100 UNIT/ML CARTRIDGE SQ SCH ×3 (07:30→18:58)
[2019-11-29] MEDS: BLOOD SUGAR DIAGNOSTIC 1 EACH STRIP VI SCH ×4 (07:30→21:04)
[2019-11-29] MEDS: LEVOTHYROXINE SODIUM 75 MCG TABLET PO SCH (07:55)
[2019-11-29 08:00] VITALS: BP_SYST 135; BP_DIAS 58; BP_DIAS 64
[2019-11-29] MEDS: GLUCERNA SHAKE 237 ML CAN PO SCH ×3 (08:03→18:46)
--- NOTE | 2019-11-29 08:25 | NUR ---
WOUND CARE CONSULT: REVIEWED NURSING DOCUMENTATION INCLUDING ADMISSION PHOTOS AND SPOKE WITH STENCIL SPRAYER AND NURSING STAFF. RECOMMENDATIONS MADE FOR SKIN PROTECTION AND WOUND CARE BASED ON NURSING REPORT AND ADMISSION DOCUMENTATION. DISCUSSED WITH NURSING STAFF. PT ON ROSIE ISOFLEX LOW AIRLOSS BED. WILL SEE PRRuthann MCALLISTER IN AGREEMENT WITH PLAN OF CARE.
[2019-11-29] MEDS ORDERED: Z GUARD REMEDY 4 OZ OINT TP PRN (08:30)
[2019-11-29] MEDS: hydrALAZINE HCL 25 MG TABLET PO SCH ×3 (08:50→18:46)
[2019-11-29] MEDS: OXYBUTYNIN CHLORIDE 5 MG TABLET PO SCH ×2 (08:50→18:45)
[2019-11-29] MEDS: FAMOTIDINE (20 MG) 20 MG TABLET PO SCH ×2 (08:50→18:45)
[2019-11-29] MEDS: ASPIRIN EC 81 MG TABLET.DR PO SCH (08:50)
[2019-11-29] MEDS: TAMSULOSIN 0.4 MG CAP.SR.24H GT SCH (08:50)
[2019-11-29] MEDS: DIVALPROEX SODIUM 125 MG TABLET.DR PO SCH ×3 (08:50→18:45)
[2019-11-29] MEDS: LEVETIRACETAM (250 MG) 250 MG TABLET PO SCH ×2 (08:51→21:04)
[2019-11-29] MEDS: CARVEDILOL 12.5 MG TABLET PO SCH ×2 (08:51→18:46)
[2019-11-29] MEDS: INSULIN GLARGINE, 100 UNIT/ML CARTRIDGE SQ SCH ×3 (09:00→21:18)
--- NOTE | 2019-11-29 11:00 | NUR ---
rn note: patient transferred to room 112-1 and isolation and telemetry status discontinued.
[2019-11-29] MEDS: CLOTRIMAZOLE 1% 15 GM TUBE TP SCH ×2 (12:58→18:46)
[2019-11-29] MEDS: BACITRACIN/POLYMYXIN B 15 GM TUBE TP SCH ×2 (12:58→18:47)
[2019-11-29] MEDS: Z GUARD REMEDY 4 OZ OINT TP SCH (12:58)
[2019-11-29] MEDS: LEVOFLOXACIN (500MG) 500 MG TABLET PO SCH (15:56)
[2019-11-29 16:00] VITALS: BP_SYST 107; BP_DIAS 58; BP_DIAS 64
--- NOTE | 2019-11-29 19:10 | NUR ---
RN closing note: Patient in bed. Awake, alert and oriented x4. On cont. 02 via NC @2lpm and tolerating well. No SOB, No respiratory distress noted. IV site clean, dry, patent and intact. IV site clean, dry, patent and intact. Tele monitor showing Sinus rhythm noted. Sanchez catheter draining yellow urine. Call light in reach. Side rails up x3. Bed locked, low and at semi-mckeon's position. Safety ensured and observed. No pain reported by patient. Seizure precaution in place.Endorsed to oncoming shift for ZIYAD.
--- NOTE | 2019-11-29 19:30 | NUR ---
MS1 RN NOTES RECEIVED ON BED A/O X4,BREATHING REGULAR,NOT IN ANY FORM OF DISTRESS,O2 2L/NC IN USED,O2 SAT 98%.WITH RIGHT UPPER ARM MIDLINE FOR MEDS.GOOD CATH IN PLACE DRAINING YELLOWISH OUTPUT.NOTED BILATERAL AKA.DENIES DISCOMFORTS AT THE MOMENT.CALL LIGHT IN REACH,NEEDS ANTICIPATED.
[2019-11-29 20:00] VITALS: BP 102/61
--- NOTE | 2019-11-29 21:00 | NUR ---
MS1 RN NOTES ACCU-CHECK BLOOD SUGAR CHECK 170,COVERED WITH LANTUS 42 UNITS ORDERED.SNACKS PROVIDED AT BEDSIDE.
[2019-11-30] MEDS: MORPHINE SULFATE INJ 4 MG/ML DISP.SYRIN IV PRN ×5 (00:01→21:45)
--- NOTE | 2019-11-30 00:01 | NUR ---
MS1 RN NOTES C/O PAIN ON LOWER EXTREMITIES,MEDICATED WITH MORPHINE 4MG IV ORDERED
[2019-11-30 05:00] VITALS: BP 125/60
--- NOTE | 2019-11-30 06:14 | NUR ---
MS RN NOTES ON BED A/0 X4,NO EPISODE OF SOB NOTED,O2 SAT WITH IN NORMAL LIMITS,PAIN MANAGEMENT EFFECTIVE,WOUND CARE TOLERATED WELL.IN NO ACUTE DISTRESS.
--- NOTE | 2019-11-30 06:53 | NUR ---
MS RN NOTES AWAKE,WATCHING TV PROGRAM,C/O GENERALIZED PAIN,MEDICATED WITH MORPHINE 4MG IV ORDERED.
--- NOTE | 2019-11-30 07:24 | NUR ---
MS/RN OPENING NOTES RECEIVED PATIENT AWAKE,LYING COMFORTABLY ON THE BED. PATIENT IS ALERT AND ORIENTED X4. NO APPARENT DISTRESS NOTED. NO COMPLAINED OF PAIN NOTED. ON ROOM AIR AT 98%. BED IN LOWEST POSITION, SIDE RAILS UP X2. WILL CONTINUE TO MONITOR.
[2019-11-30] MEDS: LEVOTHYROXINE SODIUM 75 MCG TABLET PO SCH (07:30)
--- NOTE | 2019-11-30 07:51 | NUR ---
MS/RN NOTES PATIENT REFUSED TO TAKE THE LEVOTHYROXINE PER PATIENT 0730 IS TO LATE TO TAKE THE LEVOTHYROXINE. EXPLAINED THE RISK AND BENEFITS STILL PATIENT REFUSING TO TAKE.
[2019-11-30] MEDS: BLOOD SUGAR DIAGNOSTIC 1 EACH STRIP VI SCH ×4 (07:55→22:26)
[2019-11-30] MEDS: GLUCERNA SHAKE 237 ML CAN PO SCH ×3 (07:59→17:00)
[2019-11-30 08:00] VITALS: BP 135/61
[2019-11-30] MEDS: INSULIN ASPART/LISPRO 100 UNIT/ML CARTRIDGE SQ SCH ×3 (08:05→17:30)
[2019-11-30] MEDS: ASPIRIN EC 81 MG TABLET.DR PO SCH (08:28)
[2019-11-30] MEDS: FAMOTIDINE (20 MG) 20 MG TABLET PO SCH ×2 (08:28→17:03)
[2019-11-30] MEDS: LEVETIRACETAM (250 MG) 250 MG TABLET PO SCH ×2 (08:28→21:40)
[2019-11-30] MEDS: DIVALPROEX SODIUM 125 MG TABLET.DR PO SCH ×3 (08:29→17:04)
[2019-11-30] MEDS: hydrALAZINE HCL 25 MG TABLET PO SCH ×3 (08:29→17:04)
[2019-11-30] MEDS: TAMSULOSIN 0.4 MG CAP.SR.24H GT SCH (08:29)
[2019-11-30] MEDS: CARVEDILOL 12.5 MG TABLET PO SCH ×2 (08:29→17:04)
[2019-11-30] MEDS: OXYBUTYNIN CHLORIDE 5 MG TABLET PO SCH ×2 (08:29→17:03)
[2019-11-30] MEDS: BACITRACIN/POLYMYXIN B 15 GM TUBE TP SCH ×2 (08:34→17:03)
[2019-11-30] MEDS: CLOTRIMAZOLE 1% 15 GM TUBE TP SCH ×2 (08:34→17:06)
[2019-11-30] MEDS: Z GUARD REMEDY 4 OZ OINT TP SCH (08:35)
[2019-11-30] MEDS: INSULIN GLARGINE, 100 UNIT/ML CARTRIDGE SQ SCH ×2 (08:45→22:29)
[2019-11-30] MEDS ORDERED: LEVO500T75 PO (08:45)
[2019-11-30 13:00] VITALS: BP 130/61
[2019-11-30] MEDS ORDERED: LEVOFLOXACIN (500MG) 500 MG TABLET PO SCH (15:00)
[2019-11-30] MEDS: LEVOFLOXACIN (500MG) 500 MG TABLET PO SCH (15:45)
[2019-11-30 16:23] VITALS: BP 134/62
--- NOTE | 2019-11-30 18:52 | NUR ---
MS/RN CLOSING NOTES PATIENT AWAKE,LYING COMFORTABLY ON THE BED. PATIENT IS ALERT AND ORIENTED X4. NO APPARENT DISTRESS NOTED. NO COMPLAINED OF PAIN NOTED. ON ROOM AIR AT 98%. SEEN AND EXAMINED BY MD WITH NO NEW ORDER NOTED. ALL DUE MEDS WAS GIVEN. WOUND CARE WAS DONE.BED IN LOWEST POSITION, SIDE RAILS UP X2. BED IN LOWEST POSITION, SIDE RAILS UP X2. WILL ENDORSED TO PHYS ASSISTANT FOR ZIYAD.
[2019-11-30 20:00] VITALS: BP 97/50
[2019-12-01] MEDS: MORPHINE SULFATE INJ 4 MG/ML DISP.SYRIN IV PRN ×6 (02:42→17:55)
[2019-12-01 04:00] VITALS: BP 122/66
--- NOTE | 2019-12-01 08:00 | NUR ---
RN OPENING NOTES RECEIVED PT IN BED, AWAKE ALERT AND ORINETED X3-3. NO CARDIAC OR RES DISTRESS NOTED. NO SOB NOTED. BREATHING EVEN AND UNALBORED. SATURATING WELL ON ROOM AIR. NO COMPLAINTS OF PAIN OR DISCOMFORT AT THIS TIME. GOOD CATH INTACT AND PATENT. DRAINING WITH CLEAR, YELLOW URINE. IV ACCESS NOTED ON R UPPER AM MIDLINE. INTACT AND PATENT. FLUSHING WELL. NO S/S OF INFECTION OR INFILTRATION NOTED. SAFETY PRECAUTIONS IN PLACE. BED LOCKED AND IN LOW POSITION. SIDE RAILS UP.. BED ALARM ON. WILL CONT TO MONITOR.
[2019-12-01] MEDS: LEVOTHYROXINE SODIUM 75 MCG TABLET PO SCH (08:31)
[2019-12-01] MEDS: INSULIN ASPART/LISPRO 100 UNIT/ML CARTRIDGE SQ SCH ×3 (08:35→17:30)
[2019-12-01] MEDS: FAMOTIDINE (20 MG) 20 MG TABLET PO SCH ×2 (08:37→17:00)
[2019-12-01] MEDS: LEVETIRACETAM (250 MG) 250 MG TABLET PO SCH ×2 (08:37→21:00)
[2019-12-01] MEDS: DIVALPROEX SODIUM 125 MG TABLET.DR PO SCH ×3 (08:37→17:00)
[2019-12-01] MEDS: TAMSULOSIN 0.4 MG CAP.SR.24H GT SCH (08:37)
[2019-12-01] MEDS: INSULIN GLARGINE, 100 UNIT/ML CARTRIDGE SQ SCH ×3 (08:37→21:00)
[2019-12-01] MEDS: ASPIRIN EC 81 MG TABLET.DR PO SCH (08:37)
[2019-12-01] MEDS: CARVEDILOL 12.5 MG TABLET PO SCH ×2 (08:38→17:00)
[2019-12-01] MEDS: hydrALAZINE HCL 25 MG TABLET PO SCH ×3 (08:38→17:00)
[2019-12-01] MEDS: OXYBUTYNIN CHLORIDE 5 MG TABLET PO SCH ×2 (08:38→17:00)
[2019-12-01] MEDS: BLOOD SUGAR DIAGNOSTIC 1 EACH STRIP VI SCH ×4 (08:39→21:50)
[2019-12-01] MEDS: Z GUARD REMEDY 4 OZ OINT TP SCH (08:39)
[2019-12-01] MEDS: GLUCERNA SHAKE 237 ML CAN PO SCH ×3 (08:39→17:00)
[2019-12-01] MEDS: BACITRACIN/POLYMYXIN B 15 GM TUBE TP SCH ×2 (08:39→17:00)
[2019-12-01] MEDS: CLOTRIMAZOLE 1% 15 GM TUBE TP SCH ×2 (08:41→17:00)
--- NOTE | 2019-12-01 10:32 | NUR ---
GOOD CATH CARE GOOD CATH CARE PROVIDED. PT TOLERATED WELL.
[2019-12-01 13:00] VITALS: BP 136/62
[2019-12-01] MEDS: LEVOFLOXACIN (500MG) 500 MG TABLET PO SCH ×2 (15:30→15:49)
--- NOTE | 2019-12-01 16:00 | NUR ---
TRANSFER TO [facility] PT TRANSFERRED TO [facility] IN STABLE CONDITION. REPORT GIVEN TO PURNIMA PEREYRA FOR ZIYAD.
--- NOTE | 2019-12-01 18:45 | NUR ---
MS/RN Closing Note Patient in bed remains AO x 3-4, transferred from 1st floor/MARLYS. Pt was asking 10 mg morphine for generalized pain, but there's no order, patient refused all due medications, and accucheck because of 10 mg morphine is not available. Skin is warm to touch, kept clean/dry, intact midline and good patent with NS flash. Respiratory even and unlabored with oxygen at 3LPM. Keep remain lower bed of position with locked wheel foe safety. Call light within reach. Will endorse to night shift manager.
--- NOTE | 2019-12-01 19:40 | NUR ---
RN OPENING NOTES RECEIVED REPORT FROM CITLALI ALLEN. FOUND Pt AWAKE, RESTING IN BED. Pt IS A/OX3, VERBAL, ABLE TO MAKE NEEDS KNOWN. GOOD CATHETER IN PLACE. IV ACCESS ON KARIME MIDLINE, SL. COVID-19 TEST RESULT CAME BACK NEGATIVE. PER REPORT Pt IS NOT ACCEPTED BACK TO HIS PREVIOUS SNF, AND IS NOW WAITING FOR NEW SNF PLACEMENT THAT IS ACCEPTED BY HIS INSURANCE. Pt HAS BEEN REQUESTING FOR STRONGER PAIN MEDICATION, STATING THAT THE CURRENT DOSE OF 4MG MORPHINE DOES NOTHING FOR HIS PAIN. TOLD Pt THAT I WILL PAGE THE DR AND RELAY THE MESSAGE. SAFETY MEASURES IN PLACE. BED LOW, LOCKED, HOB ELEVATED, SIDE RAILS UP, CALL LIGHT AND BEDSIDE TABLE WITHIN REACH. WILL CONTINUE TO MONITOR Pt's CONDITION AND SAFETY THROUGHOUT THE NIGHT.
--- NOTE | 2019-12-01 20:30 | NUR ---
RN NOTES Pt REFUSED FOR HIS VS TO BE TAKEN UNTIL HE GETS HIS STRONGER PAIN MEDS; IS REFUSING TO TAKE THE PRN DOSE OF 4MG MORPHINE.
--- NOTE | 2019-12-01 21:30 | NUR ---
RN NOTES SPOKE WITH ONCALL HOSPITALIST DR FLORIAN ON THE PHONE, INFORMED HIM THAT Pt IS C/O PAIN THAT IS UNRELIEVED WITH THE PRN 4MG MORPHINE AND IS REQUESTING FOR STRONGER PAIN MEDICATION. PER MD SAID HE WILL NOT INCREASE THE PAIN MED, BUT SAID IT IS OK TO GIVE HIM ATIVAN BEFORE GIVING THE MORPHINE TO SEE IF THAT WILL HELP WITH HIS PAIN, AND IF IT DOES NOT THEN CAN ADD GABAPENTIN 100MG TID. AND SAID TO REQUEST FOR A PAIN CONSULT TOMORROW MORNING WITH A PAIN SPECIALIST (WILL ENDORSE TO CITLALI PEREYRA). INFORMED Pt THAT THE DR SAID NO ON INCREASING HIS MORPHINE DOSE, BUT EXPLAINED THE ALTERNATIVE CHOICES OF GIVING HIM ATIVAN AND/OR STARTING HIM ON A SCHEDULED DOSE OF GABAPENTIN. Pt REFUSED TO TAKE ATIVAN, AND STATED THAT HE IS ALLERGIC TO GABAPENTIN, AND THAT THE ONLY PAIN MEDICATION HE IS NOT ALLERGIC TO ARE CONTROLLED SUBSTANCES. Pt THEN REFUSED TO TAKE THE REST OF HIS SCHEDULED NIGHT MEDS AND REFUSED FOR HIS BG ACCUCHECK. OFFERED TO GIVE Pt THE PRN 4MG MORPHINE, BUT Pt REFUSED TO TAKE IT STATING THAT "IT IS NO USE, AND IS POINTLESS TO TAKE. I GUESS I'LL JUST LAY HERE AND SUFFER FOR THE REST OF THE NIGHT." ASKED IF WE CAN AT LEAST TAKE HIS VS, BUT Pt REFUSED THAT TOO. Pt STATED THAT HE IS FED UP WITH OUR HOSPITAL AND JUST WANTS TO LEAVE REAL, AND UNTIL THEN HE SAID HE WILL BE REFUSING ALL MEDS AND CARE.
--- NOTE | 2019-12-02 06:45 | NUR ---
RN NOTES SPOKE WITH Pt THIS MORNING ASKING HIM IF I CAN CHECK HIS BLOOD SUGAR THIS MORNING BEFORE BREAKFAST, AND Pt SAID NO; Pt IS STILL REFUSING CARE AND MEDS.
--- NOTE | 2019-12-02 06:50 | NUR ---
RN CLOSING NOTES NO SIGNIFICANT CHANGES IN Pt's CONDITION. Pt IS RESTING IN BED WITH UNLABORED RESPIRATIONS AND EQUAL CHEST RISE AND FALL. SAFETY MEASURES IN PLACE. WILL ENDORSE TO DAYSHIFT RN FOR Pt's ZIYAD.
[2019-12-02] MEDS: INSULIN ASPART/LISPRO 100 UNIT/ML CARTRIDGE SQ SCH ×3 (06:51→17:30)
[2019-12-02] MEDS: BLOOD SUGAR DIAGNOSTIC 1 EACH STRIP VI SCH ×4 (06:51→21:09)
[2019-12-02] MEDS: LEVOTHYROXINE SODIUM 75 MCG TABLET PO SCH (07:30)
--- NOTE | 2019-12-02 07:55 | NUR ---
rn entering rm. and pt.shaking forcefully,appears like seizure.unable to take vs as pt. shaking heavily.kiln charger in and attempted to quiet pt. and movement slowed down,then sped up again.movement ongoing but intermittent.bgl checked and 134,although pt. sweaty,and when spoken to,no response.arms hitting chest during process of episode.rn monitoring continually.
[2019-12-02 08:00] VITALS: BP 153/69
[2019-12-02] MEDS: GLUCERNA SHAKE 237 ML CAN PO SCH ×3 (08:00→17:38)
[2019-12-02] MEDS ORDERED: LORAZEPAM INJ 2 MG/ML VIAL IV STA ×2 (08:04→08:14)
--- NOTE | 2019-12-02 08:18 | NUR ---
rn at [facility] contacting pt's md dr. butts.received ativan iv order and med given.
[2019-12-02 08:23] VITALS: BP 143/117
--- NOTE | 2019-12-02 08:23 | NUR ---
in report this am alerted that pt. refusing meds including keppra.pt. was waiting for morphine dose to be increased.
--- NOTE | 2019-12-02 08:25 | NUR ---
vs taken see graphic.resp. rate fast but,no labored breathing.pt. removing o2 and reapplied.
[2019-12-02 08:30] VITALS: BP 94/69
--- NOTE | 2019-12-02 08:30 | NUR ---
vs taken again,trembling on and off.vs taken again.
--- NOTE | 2019-12-02 08:40 | NUR ---
hemodialysis charge nurse of pt. activity,and dr. butts.additionally aware.
[2019-12-02] MEDS: FAMOTIDINE (20 MG) 20 MG TABLET PO SCH ×2 (09:00→17:00)
[2019-12-02] MEDS: ASPIRIN EC 81 MG TABLET.DR PO SCH (09:00)
[2019-12-02] MEDS: TAMSULOSIN 0.4 MG CAP.SR.24H GT SCH (09:00)
[2019-12-02] MEDS: DIVALPROEX SODIUM 125 MG TABLET.DR PO SCH ×3 (09:00→17:00)
[2019-12-02] MEDS: CARVEDILOL 12.5 MG TABLET PO SCH ×2 (09:00→17:00)
[2019-12-02] MEDS: hydrALAZINE HCL 25 MG TABLET PO SCH ×3 (09:00→17:00)
[2019-12-02] MEDS: OXYBUTYNIN CHLORIDE 5 MG TABLET PO SCH ×2 (09:00→17:00)
[2019-12-02] MEDS: CLOTRIMAZOLE 1% 15 GM TUBE TP SCH ×2 (09:26→17:48)
[2019-12-02] MEDS ORDERED: Z GUARD REMEDY 2 OZ OINT TP PRN (09:30)
--- NOTE | 2019-12-02 09:30 | NUR ---
received order from dr. butts for iv keppra as pt. refusing po keppra.
[2019-12-02] MEDS: LEVETIRACETAM (500MG) 750 MG in IV NS 0.9% 100 ML IV SCH ×2 (10:08→21:03)
[2019-12-02 10:13] LABS: BASOPHILS # (AUTO) 0.1 /CMM (0.0-0.2); BASOPHILS % (AUTO) 0.8 % (0.0-2.0); HEMATOCRIT 38 % (39-51); HEMOGLOBIN 12.3 g/dL (13.5-17.5); LYMPHOCYTES # (AUTO) 2.1 /CMM (0.8-4.8); LYMPHOCYTES % (AUTO) 17.5 % (20.0-44.0); MEAN CORPUSCULAR HGB CONC 32 g/dl (31.0-36.0); MEAN CORPUSCULAR VOLUME 78 fL (80-96); MONOCYTES # (AUTO) 0.7 /CMM (0.1-1.30); NEUTROPHILS # (AUTO) 8.2 /CMM (1.8-8.9); NEUTROPHILS % (AUTO) 68.7 % (43.0-81.0); PLATELET COUNT (AUTO) 280 /CMM (150-450); RED BLOOD CELL COUNT(AUTO) 4.93 MIL/uL (4.5-6.0); WHITE BLOOD COUNT (AUTO) 11.9 K/uL (4.3-11.0)
[2019-12-02 10:33] LABS: CREATININE 0.9 mg/dL (0.6-1.3); MAGNESIUM 1.7 mg/dL (1.8-2.4)
[2019-12-02] MEDS: INSULIN GLARGINE, 100 UNIT/ML CARTRIDGE SQ SCH ×2 (11:11→21:12)
[2019-12-02] MEDS: BACITRACIN/POLYMYXIN B 15 GM TUBE TP SCH ×2 (11:15→17:49)
[2019-12-02] MEDS: MORPHINE SULFATE INJ 4 MG/ML DISP.SYRIN IV PRN ×3 (11:21→21:16)
[2019-12-02] MEDS: Magnesium 1GM/D5W 100ML PREMIX 100 ML IV SCH ×2 (13:05→15:37)
[2019-12-02] MEDS: LEVOFLOXACIN (500MG) 500 MG TABLET PO SCH (15:30)
[2019-12-02 16:00] VITALS: BP 133/62
--- NOTE | 2019-12-02 18:00 | NUR ---
NO FURTHER SEIZURE TYPE ACTIVITY.REFUSED NEERAJ. MEDS AND ACCU-CHECK.STATES THE TIME IS NOT RIGHT AND WON'T TAKE MEDS.
--- NOTE | 2019-12-02 18:45 | NUR ---
MG REPLACEMENT GIVEN.
--- NOTE | 2019-12-02 19:00 | NUR ---
MEDICATED X 2 FOR PAIN WITH MORPHINE.
--- NOTE | 2019-12-02 19:36 | NUR ---
MS RN OPENING NOTE RECEIVED PATIENT IN BED. A/OX4. ON OXYGEN 3L/MIN VIA SIMPLE MASK. RESPIRATIONS ARE EVEN AND UNLABORED, NO S/S SOB NOTED. NO S/S PAIN AT THIS TIME. IN NO APPARENT DISTRESS AT THIS TIME. IV ACCESS IN KARIME MIDLINE [PATENT AND SALINE LOCKED. GOOD CATHETER IS PRESENT, DRAINING TO GRAVITY. BED IS LOW AND LOCKED, HOB ELEVATED IN SEMI FOWLERS, SIDE RIALS UP X 4, SEIZURE PRECAUTIONS IN PLACE, BED ALARM ON. CALL LIGHT WITHIN REACH. WILL CONTINUE TO MONITOR.
[2019-12-02 21:00] VITALS: BP 108/65
[2019-12-02] MEDS ORDERED: LEVETIRACETAM (250 MG) 250 MG TABLET PO SCH (21:00)
--- NOTE | 2019-12-02 21:16 | NUR ---
MS RN NOTE ADMINISTERED PRN MORPHINE 4MG FOR C/O PAIN 10/10 , GENERALIZED, NECK, SHOULDERS, LEGS, BACK. WILL CONTINUE TO MONITOR.
[2019-12-03] MEDS: MORPHINE SULFATE INJ 4 MG/ML DISP.SYRIN IV PRN ×5 (03:16→19:50)
--- NOTE | 2019-12-03 03:16 | NUR ---
MS RN NOTE ADMINISTERED PRN MORPHINE 4MG FOR C/O PAIN 10/10 , GENERALIZED, NECK, SHOULDERS, LEGS, BACK. WILL CONTINUE TO MONITOR.
[2019-12-03] MEDS: LORAZEPAM INJ 2 MG/ML VIAL IV PRN ×2 (05:25→17:29)
--- NOTE | 2019-12-03 05:35 | NUR ---
MS RN NOTE ADMINISTERED PRN ATIVAN 1MG POR ANXIETY. WILL CONTINUE TO MONITOR
[2019-12-03 06:30] LABS: BASOPHILS # (AUTO) 0.1 /CMM (0.0-0.2); BASOPHILS % (AUTO) 0.7 % (0.0-2.0); EOSINOPHILS % (AUTO) 7.9 % (0.0-6.0); HEMATOCRIT 34 % (39-51); LYMPHOCYTES # (AUTO) 3.4 /CMM (0.8-4.8); LYMPHOCYTES % (AUTO) 28.3 % (20.0-44.0); MEAN CORPUSCULAR HGB CONC 32 g/dl (31.0-36.0); MEAN CORPUSCULAR VOLUME 77 fL (80-96); MONOCYTES # (AUTO) 0.9 /CMM (0.1-1.30); MONOCYTES % (AUTO) 7.6 % (2.0-12.0); NEUTROPHILS # (AUTO) 6.7 /CMM (1.8-8.9); NEUTROPHILS % (AUTO) 55.5 % (43.0-81.0); PLATELET COUNT (AUTO) 249 /CMM (150-450); RED BLOOD CELL COUNT(AUTO) 4.42 MIL/uL (4.5-6.0)
--- NOTE | 2019-12-03 06:31 | NUR ---
MS RN CLOSING NOTE PATIENT IN BED. A/OX4. ON OXYGEN 3L/MIN VIA SIMPLE MASK. RESPIRATIONS ARE EVEN AND UNLABORED, NO SOB NOTED. MANAGED PAIN WITH MORPHINE THROUGHOUT SHIFT. NO DISTRESS NOTED. IV ACCESS MAINTAINED IN KARIME MIDLINE RUNNING TKO @5ML/HR. GOOD CATHETER IS MAINTAINED, DRAINING TO GRAVITY, URINE IS YELLOW AND CLEAR, OUTPUT 2100. BED REMAINS LOW AND LOCKED, HOB ELEVATED IN SEMI FOWLERS, SIDE RIALS UP X 4, SEIZURE PRECAUTIONS IN PLACE, BED ALARM ON. CALL LIGHT WITHIN REACH. WILL ENDORSE TO NEXT SHIFT.
[2019-12-03 06:39] LABS: CALCIUM, SERUM 9.1 mg/dL (8.5-10.1); CREATININE 0.6 mg/dL (0.6-1.3); MAGNESIUM 1.7 mg/dL (1.8-2.4); POTASSIUM 3.9 mmol/L (3.5-5.1)
--- NOTE | 2019-12-03 07:20 | NUR ---
MS RN NOTES RECEIVED PATIENT IN BED, ASLEEP. AROUSABLE TO VERBAL AND TACTILE STIMULI. HOB ELEVATED. KARIME MIDLINE INTACT AND PATENT. BED IN LOWEST POSITION, LOCKED. BED ALARM ON. CALL LIGHT WITHIN REACH. ABLE TO VERBALIZE NEEDS.
[2019-12-03 08:00] VITALS: BP 122/63
[2019-12-03] MEDS: LEVOTHYROXINE SODIUM 75 MCG TABLET PO SCH (08:24)
[2019-12-03] MEDS: INSULIN ASPART/LISPRO 100 UNIT/ML CARTRIDGE SQ SCH ×3 (08:25→18:10)
[2019-12-03] MEDS: GLUCERNA SHAKE 237 ML CAN PO SCH ×3 (08:25→17:00)
[2019-12-03] MEDS: BLOOD SUGAR DIAGNOSTIC 1 EACH STRIP VI SCH ×4 (08:25→22:28)
[2019-12-03] MEDS: ASPIRIN EC 81 MG TABLET.DR PO SCH (08:35)
[2019-12-03] MEDS: FAMOTIDINE (20 MG) 20 MG TABLET PO SCH ×2 (08:35→17:00)
[2019-12-03] MEDS: OXYBUTYNIN CHLORIDE 5 MG TABLET PO SCH ×2 (08:36→17:00)
[2019-12-03] MEDS: DIVALPROEX SODIUM 125 MG TABLET.DR PO SCH ×3 (08:36→17:00)
[2019-12-03] MEDS: CARVEDILOL 12.5 MG TABLET PO SCH ×2 (08:36→17:00)
[2019-12-03] MEDS: hydrALAZINE HCL 25 MG TABLET PO SCH ×3 (08:37→17:00)
[2019-12-03] MEDS: TAMSULOSIN 0.4 MG CAP.SR.24H GT SCH (08:37)
[2019-12-03] MEDS: INSULIN GLARGINE, 100 UNIT/ML CARTRIDGE SQ SCH ×2 (08:39→22:39)
[2019-12-03] MEDS: LEVETIRACETAM (500MG) 750 MG in IV NS 0.9% 100 ML IV SCH ×2 (08:42→20:52)
[2019-12-03] MEDS: BACITRACIN/POLYMYXIN B 15 GM TUBE TP SCH ×2 (08:57→17:00)
[2019-12-03] MEDS: Z GUARD REMEDY 2 OZ OINT TP SCH (08:57)
[2019-12-03] MEDS: CLOTRIMAZOLE 1% 15 GM TUBE TP SCH ×4 (08:57→17:00)
[2019-12-03] MEDS: Magnesium 1GM/D5W 100ML PREMIX 100 ML IV SCH ×2 (11:31→12:35)
--- NOTE | 2019-12-03 18:44 | NUR ---
MS RN NOTES PATIENT RESTING COMFORTABLY IN BED, WATCHING TV. HOB ELEVATED. ON ROOM AIR WITH SPO2 OF 95%. KARIME MIDLINE INTACT AND PATENT. DENIES ANY C/O PAIN NOR DISCOMFORT AT THIS TIME. PATIENT STATED HE WAS HAVING A "SEIZURE" WHILE TALKING TO PRIMARY NURSE WITH ARMS SWINGING UP AND DOWN, AND THIGHS SWINGING UP AND DOWN. DURING THAT TIME NO EVIDENCE OF PAIN NOR DISCOMFORT NOR EPISODE OF SEIZURE OBSERVED. PATIENT WAS ABLE TO ANSWER QUESTIONS READILY WHEN ASKED. WOUND CARE RENDERED COURTNEY WELL. BED IN LOWEST POSITION, LOCKED. BED ALARM ON. CALL LIGHT WITHIN REACH. ABLE TO VERBALIZE NEEDS. IN NO APPARENT DISTRESS.
--- NOTE | 2019-12-03 19:50 | NUR ---
MS RN NOTE ADMINISTERED PRN MORPHINE 4MG FOR PAIN 06/08 GENERALIZED. WILL CONTINUE TO MONITOR.
[2019-12-03 20:00] VITALS: BP 115/70
[2019-12-04] MEDS: MORPHINE SULFATE INJ 4 MG/ML DISP.SYRIN IV PRN ×5 (01:10→21:20)
--- NOTE | 2019-12-04 01:10 | NUR ---
MS RN NOTE ADMINISTERED PRN MORPHINE 4MG FOR PAIN 10/10 GENERALIZED PAIN. WILL CONTINUE TO MONITOR.
[2019-12-04] MEDS: LEVOTHYROXINE SODIUM 75 MCG TABLET PO SCH ×2 (05:20→06:00)
--- NOTE | 2019-12-04 05:24 | NUR ---
MS RN NOTE ADMINISTERED PRN MORPHINE 4MG FOR PAIN 10/10 GENERALIZED PAIN. WILL CONTINUE TO MONITOR.
--- NOTE | 2019-12-04 06:25 | NUR ---
ms rn note patient refuse levothyroxine scheduled for 0600. patient wants medication exactly at 0600. informed patient of risk and benefits, patient continues to refuse. will continue to monitor.
--- NOTE | 2019-12-04 06:31 | NUR ---
MS RN CLOSING NOTE PATIENT IN BED. A/OX4. ON OXYGEN 3L/MIN VIA SIMPLE MASK. RESPIRATIONS ARE EVEN AND UNLABORED, NO SOB NOTED. MANAGED PAIN WITH MORPHINE THROUGHOUT SHIFT. NO DISTRESS NOTED. IV ACCESS MAINTAINED IN KARIME MIDLINE RUNNING TKO @5ML/HR. GOOD CATHETER IS MAINTAINED, DRAINING TO GRAVITY, URINE IS YELLOW AND CLEAR, OUTPUT 3650. BED REMAINS LOW AND LOCKED, HOB ELEVATED IN SEMI FOWLERS, SIDE RIALS UP X 4, SEIZURE PRECAUTIONS IN PLACE, BED ALARM ON. CALL LIGHT WITHIN REACH. WILL ENDORSE TO NEXT SHIFT.
[2019-12-04 06:46] LABS: BASOPHILS # (AUTO) 0.1 /CMM (0.0-0.2); EOSINOPHILS % (AUTO) 7.5 % (0.0-6.0); HEMATOCRIT 34 % (39-51); HEMOGLOBIN 11.2 g/dL (13.5-17.5); LYMPHOCYTES # (AUTO) 3.1 /CMM (0.8-4.8); MEAN CORPUSCULAR HGB CONC 33 g/dl (31.0-36.0); MEAN CORPUSCULAR VOLUME 77 fL (80-96); MONOCYTES # (AUTO) 0.9 /CMM (0.1-1.30); MONOCYTES % (AUTO) 8.6 % (2.0-12.0); NEUTROPHILS # (AUTO) 5.5 /CMM (1.8-8.9); NEUTROPHILS % (AUTO) 52.9 % (43.0-81.0); PLATELET COUNT (AUTO) 250 /CMM (150-450); RED BLOOD CELL COUNT(AUTO) 4.47 MIL/uL (4.5-6.0); WHITE BLOOD COUNT (AUTO) 10.5 K/uL (4.3-11.0)
[2019-12-04 06:52] LABS: ALBUMIN 2.4 g/dL (3.4-5.0); BILIRUBIN,TOTAL 0.1 mg/dL (0.2-1.0); CALCIUM, SERUM 9.3 mg/dL (8.5-10.1); MAGNESIUM 1.4 mg/dL (1.8-2.4); POTASSIUM 3.9 mmol/L (3.5-5.1); TOTAL PROTEIN, SERUM 6.2 g/dL (6.4-8.2)
--- NOTE | 2019-12-04 07:30 | NUR ---
MS RN OPENING NOTES RECEIVED PATIENT IN BED, AWAKE AT THIS TIME WITH HOB ELEVATED. A/OX 3-4. PT IS ABLE TO VERBALIZE NEEDS. PT ON OXYGEN 3L/MIN VIA SIMPLE MASK. PT APPPEARS COMFORTABLE IN BED WITH NO S/S OF ANY ACUTE DISTRESS. RESPIRATIONS ARE EVEN AND UNLABORED. NO S/S SOB NOTED. NO S/S PAIN AT THIS TIME. IV ACCESS IN KARIME MIDLINE INTACT AND PATENT. GOOD CATHETER IS PRESENT, DRAINING TO GRAVITY, CLEAR YELLOW URINE. SEIZURE AND SAFETY PRECAUTIONS IN PLACE. BED IN LOWEST LOCKED POSITION, SIDE RAILS UP X2 AND PADDED, CALL LIGHT WITHIN REACH. WILL CONTINUE TO MONITOR.
[2019-12-04 08:00] VITALS: BP 116/68
[2019-12-04] MEDS: BLOOD SUGAR DIAGNOSTIC 1 EACH STRIP VI SCH ×4 (08:30→21:06)
[2019-12-04] MEDS: INSULIN ASPART/LISPRO 100 UNIT/ML CARTRIDGE SQ SCH ×3 (08:30→17:17)
[2019-12-04] MEDS: GLUCERNA SHAKE 237 ML CAN PO SCH ×3 (08:42→16:48)
[2019-12-04] MEDS: CARVEDILOL 12.5 MG TABLET PO SCH ×2 (08:50→16:41)
[2019-12-04] MEDS: TAMSULOSIN 0.4 MG CAP.SR.24H GT SCH (08:50)
[2019-12-04] MEDS: ASPIRIN EC 81 MG TABLET.DR PO SCH (08:51)
[2019-12-04] MEDS: OXYBUTYNIN CHLORIDE 5 MG TABLET PO SCH ×2 (08:51→16:43)
[2019-12-04] MEDS: FAMOTIDINE (20 MG) 20 MG TABLET PO SCH ×2 (08:52→16:43)
[2019-12-04] MEDS: DIVALPROEX SODIUM 125 MG TABLET.DR PO SCH ×3 (08:52→16:41)
[2019-12-04] MEDS: hydrALAZINE HCL 25 MG TABLET PO SCH ×3 (08:53→16:42)
[2019-12-04] MEDS: CLOTRIMAZOLE 1% 15 GM TUBE TP SCH ×4 (08:56→17:06)
[2019-12-04] MEDS: BACITRACIN/POLYMYXIN B 15 GM TUBE TP SCH ×2 (08:57→16:45)
[2019-12-04] MEDS: INSULIN GLARGINE, 100 UNIT/ML CARTRIDGE SQ SCH ×2 (08:58→21:05)
[2019-12-04] MEDS: Z GUARD REMEDY 2 OZ OINT TP SCH (08:59)
[2019-12-04] MEDS: LEVETIRACETAM (500MG) 750 MG in IV NS 0.9% 100 ML IV SCH (09:03)
[2019-12-04] MEDS: Magnesium 1GM/D5W 100ML PREMIX 100 ML IV SCH ×4 (11:14→14:30)
[2019-12-04] MEDS: LORAZEPAM INJ 2 MG/ML VIAL IV PRN (12:47)
[2019-12-04 16:00] VITALS: BP 136/52
--- NOTE | 2019-12-04 18:50 | NUR ---
MS RN CLOSING NOTES PATIENT IN BED, AWAKE WITH HOB ELEVATED IN SEMI FOWLERS POSITION. A/OX 3-4. PT ON OXYGEN 3L/MIN VIA SIMPLE MASK. NO S/S OF ANY ACUTE DISTRESS NOTED THROUGHOUT THE SHIFT. RESPIRATIONS ARE EVEN AND UNLABORED. NO S/S SOB NOTED. PAIN MANAGED WITH MORPHINE. IV ACCESS IN KARIME MIDLINE INTACT, PATENT AND INFUSING [email or web address]. GOOD CATHETER IS DRAINING TO GRAVITY. URINE OUTPUT IS [id number] CLEAR YELLOW. PT KEPT CLEAN AND ALL NEEDS MET. SEIZURE AND SAFETY PRECAUTIONS IN PLACE. BED IN LOWEST LOCKED POSITION, SIDE RAILS UP X 2 AND PADDED, CALL LIGHT WITHIN REACH. WILL ENDORSE TO PROBATE LAWYER NURSE FOR [facility].
--- NOTE | 2019-12-04 19:40 | NUR ---
MS RN OPENING NOTES RECEIVED PATIENT FROM MORNING SHIFT, ALERT AND ORIENTED X 3. VERBALLY RESPONSIVE AND ABLE TO FOLLOW DIRECTIONS. BREATHING REGULAR AND UNLABORED ON OXYGEN AT 3L/MIN VIA FACE MASK PER REQUEST. RIGHT UPPER ARM MIDLINE INTACT AND PATENT, INFUSING WELL WITH NO BLEEDING OR S/S OF INFECTION/INFILTRATION NOTED. GOOD CATH INTACT DRAINING CLEAR YELLOW URINE WITH MODERATE AMOUNT ON BAG. DENIES ANY SUICIDAL/HOMICIDAL IDEATION AT THIS TIME. COMPLAINED OF 3/10 GENERALIZED BODY PAIN. NON-PHARMACOLOGICAL INTERVENTIONS PROVIDED. BED LOW AND LOCKED ON SEMI FOWLERS POSITION. CALL LIGHT IN REACH. WILL CONTINUE TO MONITOR.
[2019-12-04 20:00] VITALS: BP 134/62
[2019-12-04 20:27] VITALS: BP 134/62
[2019-12-04] MEDS: LEVETIRACETAM SOL (5 ML) 100 MG/ML UDC NG SCH (21:06)
--- NOTE | 2019-12-04 21:30 | NUR ---
MS RN NOTES COMPLAINED OF 8/10 GENERALIZED BODY PAIN, MORPHINE 4MG GIVEN VIA IV PUSH. VITAL SIGNS WNL. WILL CONTINUE TO MONITOR.
--- NOTE | 2019-12-04 22:00 | NUR ---
MS RN NOTES BS 198mg/dl, 46UNITS LANTUS GIVEN SQ. SNACKS PROVIDED ON BEDSIDE. WILL CONTINUE TO MONITOR.
[2019-12-05] MEDS: MORPHINE SULFATE INJ 4 MG/ML DISP.SYRIN IV PRN ×5 (01:27→23:45)
[2019-12-05] MEDS: LEVOTHYROXINE SODIUM 75 MCG TABLET PO SCH (05:50)
--- NOTE | 2019-12-05 06:25 | NUR ---
MS RN CLOSING NOTES PATIENT IN BED ALERT AND ORIENTED X 3. VERBALLY RESPONSIVE AND ABLE TO FOLLOW DIRECTIONS. BREATHING REGULAR AND UNLABORED ON OXYGEN AT 3L/MIN VIA FACE MASK PER REQUEST. RIGHT UPPER ARM MIDLINE PATENT AND FLUSHING WELL. GOOD CATH INTACT DRAINING CLEAR YELLOW URINE WITH 3000CC OUTPUT. BED LOW AND LOCKED ON SEMI FOWLERS POSITION. CALL LIGHT IN REACH. WILL ENDORSE TO MORNING SHIFT FOR ZIYAD.
[2019-12-05] MEDS: BLOOD SUGAR DIAGNOSTIC 1 EACH STRIP VI SCH ×4 (06:32→22:23)
--- NOTE | 2019-12-05 07:30 | NUR ---
RN MS NOTES PT IN BED, AWAKE, ALERT AND ORIENTED, NO COMPLAINT AT THIS TIME, BREATHING PATTERN NORMAL, CALL LIGHT WITHIN REACH, NEEDS ATTENDED.
[2019-12-05 08:00] VITALS: BP 136/80
[2019-12-05] MEDS: GLUCERNA SHAKE 237 ML CAN PO SCH ×3 (08:00→16:31)
[2019-12-05] MEDS: INSULIN ASPART/LISPRO 100 UNIT/ML CARTRIDGE SQ SCH ×3 (08:19→17:02)
[2019-12-05] MEDS: INSULIN GLARGINE, 100 UNIT/ML CARTRIDGE SQ SCH ×3 (08:20→22:28)
[2019-12-05] MEDS: LEVETIRACETAM SOL (5 ML) 100 MG/ML UDC NG SCH ×3 (09:00→21:24)
[2019-12-05] MEDS: CARVEDILOL 12.5 MG TABLET PO SCH ×2 (09:04→16:34)
[2019-12-05] MEDS: OXYBUTYNIN CHLORIDE 5 MG TABLET PO SCH ×2 (09:04→16:34)
[2019-12-05] MEDS: ASPIRIN EC 81 MG TABLET.DR PO SCH (09:04)
[2019-12-05] MEDS: TAMSULOSIN 0.4 MG CAP.SR.24H GT SCH (09:04)
[2019-12-05] MEDS: DIVALPROEX SODIUM 125 MG TABLET.DR PO SCH ×3 (09:04→16:34)
[2019-12-05] MEDS: hydrALAZINE HCL 25 MG TABLET PO SCH ×3 (09:04→16:34)
[2019-12-05] MEDS: FAMOTIDINE (20 MG) 20 MG TABLET PO SCH ×2 (09:04→16:33)
[2019-12-05] MEDS: BACITRACIN/POLYMYXIN B 15 GM TUBE TP SCH ×2 (09:08→16:38)
[2019-12-05] MEDS: CLOTRIMAZOLE 1% 15 GM TUBE TP SCH ×4 (09:08→16:39)
[2019-12-05] MEDS: Z GUARD REMEDY 2 OZ OINT TP SCH (09:14)
--- NOTE | 2019-12-05 12:00 | NUR ---
RN MS NOTES RECEIVED ORDER FROM DR. GOLDEN TO DO A COVID19 TEST FOR PATIENT FOR PLACEMENT PURPOSES.
--- NOTE | 2019-12-05 12:00 | NUR ---
RN MS NOTES PT COMPLAINING THAT HIS PAIN MEDICATION IS NOT ENOUGH FOR HIS PAIN, DR. MENDEZ INFORMED, ORDERS GIVEN.
[2019-12-05] MEDS: oxyCODONE HCL SR 20MG TAB.SR.12H PO SCH ×2 (13:28→21:19)
[2019-12-05 16:00] VITALS: BP 125/86
--- NOTE | 2019-12-05 18:34 | NUR ---
RN MS NOTES PT IN BED, AWAKE, ALERT AND ORIENTED, WATCHING TV, WITH COMPLAINT OF SORE THROAT, DR. GOLDEN INFORMED, ORDERED CEPACOL LOZENGES, TOLERATES CURRENT DIET, CALL LIGHT WITHIN REACH, WITH EPISODES OF REFUSING BEDSIDE CARE, PM MEDS GIVEN, ALL NEEDS ATTENDED.
--- NOTE | 2019-12-05 19:55 | NUR ---
RN NOTES RECEIVED PATIENT AWAKE, ALERT ORIENTED X3-4. CALM RESTING COMFORTABLY, IV ACCESS INTACT AND PATENT RIGHT UPPER ARM MIDLINE. NO SIGNS OF ACUTE DISTRESS NOTED, PATIENT COMPLAINT OF SORE THROAT, WILL CHECK PRN ORDERS, SAFETY MEASURES INPLACE, CALL LIGHT WITHIN EASY REACH, BED IN LOW LOCKED POSITION, REPOSITIONED FOR COMFORT, FC INTACT AND PATENT, ALL NEEDS ATTENDED, WILL CONTINUE TO MONITOR ACCORDINGLY.
[2019-12-05 20:15] VITALS: BP 109/62
[2019-12-05] MEDS: MENTHOL/CETYLPYRD (CEPACOL) 1 LOZ LOZENGE PO PRN ×2 (20:44→23:52)
--- NOTE | 2019-12-05 21:06 | NUR ---
RN NOTES PATIENT REFUSED KEPPRA AFTER SCANNING AND OPENING THE LIQUID PACKAGE. WASTED OPENED MEDICATION.
[2019-12-06] MEDS: MENTHOL/CETYLPYRD (CEPACOL) 1 LOZ LOZENGE PO PRN ×3 (02:34→15:27)
[2019-12-06] MEDS: MORPHINE SULFATE INJ 4 MG/ML DISP.SYRIN IV PRN ×3 (05:40→19:56)
[2019-12-06] MEDS: LEVOTHYROXINE SODIUM 75 MCG TABLET PO SCH (05:41)
--- NOTE | 2019-12-06 07:17 | NUR ---
RN NOTES ALL NEEDS ATTENDED AND MET, ADLS DONE, KEPT CLEAN WARM DRY AND COMFORTABLE, REPOSITIONED FOR COMFORT. SAFETY MEASURES IN PLACE, WILL ENDORSE TO AM NURSE FOR CONTINUITY OF CARE.
[2019-12-06] MEDS: BLOOD SUGAR DIAGNOSTIC 1 EACH STRIP VI SCH ×4 (07:19→22:18)
[2019-12-06 08:00] VITALS: BP 149/76
--- NOTE | 2019-12-06 08:00 | NUR ---
RN NOTES RECEIVED PATIENT IN THE BED A/O X3, MALE ON MASK O2-3L.PATIENT HAS NO ACUTE RESPIRATORY DISTRESS, V/S STABLE, BS-189 MG/DL COVERAGE GIVEN, PATIENT WAS COMPLAINING OF GENERALIZED PAIN 10/10 PER PAIN SCALE. GOOD CATHETER DRAINING LIGHT YELLOW OUTCOME, PER MD ORDER TO D/C GOOD, BUT PATIENT REFUSED. MD AWARE OF, AND CHANGE ORDER TO KEEP GOOD. MIDLINE ON RIGHT UA INTACT. PATIENT OBESE, TOLERATED BREAKFAST 100 %, NO SEIZURE AT THIS TIME, SEIZURE PRECAUTION MAINTAINED ALL THE TIME, PATIENT HAS BILATERAL UPPER KNEE LOWER LEGS AMPUTATION. MINIMAL CARE, ASSIST TURN AND REPOSTION Q 2 HR USING PILLOWS, V/S STABLE, CALL LIGHT WITHIN TO REACH. CONTINUED MONITORING.
[2019-12-06] MEDS: Z GUARD REMEDY 2 OZ OINT TP SCH (09:00)
--- NOTE | 2019-12-06 09:00 | NUR ---
RN NOTES ADMINISTERED SCHEDULED MEDICATION, AND PAIN WELL. CONTINUED MONITORING.
[2019-12-06] MEDS: GLUCERNA SHAKE 237 ML CAN PO SCH ×3 (09:45→17:32)
[2019-12-06] MEDS: LEVETIRACETAM (250 MG) 250 MG TABLET PO SCH ×2 (09:46→21:32)
[2019-12-06] MEDS: FAMOTIDINE (20 MG) 20 MG TABLET PO SCH ×2 (09:46→17:29)
[2019-12-06] MEDS: TAMSULOSIN 0.4 MG CAP.SR.24H GT SCH (09:46)
[2019-12-06] MEDS: OXYBUTYNIN CHLORIDE 5 MG TABLET PO SCH ×2 (09:47→17:30)
[2019-12-06] MEDS: DIVALPROEX SODIUM 125 MG TABLET.DR PO SCH ×3 (09:47→17:30)
[2019-12-06] MEDS: ASPIRIN EC 81 MG TABLET.DR PO SCH (09:48)
[2019-12-06] MEDS: oxyCODONE HCL SR 20MG TAB.SR.12H PO SCH ×2 (09:48→21:32)
[2019-12-06] MEDS: CARVEDILOL 12.5 MG TABLET PO SCH ×2 (09:48→17:36)
[2019-12-06] MEDS: hydrALAZINE HCL 25 MG TABLET PO SCH ×3 (09:49→17:30)
[2019-12-06] MEDS: CLOTRIMAZOLE 1% 15 GM TUBE TP SCH ×3 (09:50→17:29)
[2019-12-06] MEDS: BACITRACIN/POLYMYXIN B 15 GM TUBE TP SCH ×2 (09:51→17:32)
[2019-12-06] MEDS: INSULIN ASPART/LISPRO 100 UNIT/ML CARTRIDGE SQ SCH ×3 (10:00→17:30)
[2019-12-06] MEDS: INSULIN GLARGINE, 100 UNIT/ML CARTRIDGE SQ SCH ×2 (10:01→22:18)
--- NOTE | 2019-12-06 11:33 | NUR ---
rn notes ADMINISTERED MORPHINE 4 MG.ML IV PUSH ON PAIN 10/10 PER PAIN SCALE, PER PATIENT REQUEST. V/S TAKEN BP 138/54, P-81, R-20. ENCOURAGED TO INCREASE FLUID INTAKE.
--- NOTE | 2019-12-06 12:00 | NUR ---
RN NOTES BS-183 MG/DL COVERAGE GIVEN, ALSO ADMINISTERED SCHEDULED MEDICATION, ASSIST TURN AND REPOSITION Q2 HR.
--- NOTE | 2019-12-06 13:01 | NUR ---
RN NOTES ADMINISTERED CEPACOL 1 GRETCHEN FOR SORE THROAT PER PATIENT REQUEST.
[2019-12-06 13:02] VITALS: BP 138/57
[2019-12-06] MEDS: LORAZEPAM INJ 2 MG/ML VIAL IV PRN (14:40)
--- NOTE | 2019-12-06 14:40 | NUR ---
rn notes administered Ativan 1 mg /ml iv push for seizure precaution, v/s taken bp 132/47, p-76, r-19. continued monitoring.
--- NOTE | 2019-12-06 15:28 | NUR ---
rn notes administered Cepacol for sore throat per patient request.
[2019-12-06 15:45] VITALS: BP 132/47
--- NOTE | 2019-12-06 18:15 | NUR ---
RN NOTES ADMINISTERED SCHEDULED MEDICATION, V/S STABLE, BS-140 MG/DL PATIENT REFUSED COVERAGE, IV ACCESS MIDLINE ON RIGHT UA INTACT. MEDICATION WERE ADMINISTERED FOR ANXIETY EFFECTIVE, PATIENT EATING DINNER, ASSIST TURN AND REPOSTION Q 2 HR. STILL WAITING FOR PAIN MANAGEMENT CONSULTATION. CALL LIGHT WITHIN TO REACH. ENDORSED ONCOMING NURSE FOLLOW PLAN OF CARE.
[2019-12-06 20:00] VITALS: BP 107/65
[2019-12-07] MEDS: MENTHOL/CETYLPYRD (CEPACOL) 1 LOZ LOZENGE PO PRN (00:08)
[2019-12-07 04:29] VITALS: BP 108/64
[2019-12-07] MEDS: LORAZEPAM INJ 2 MG/ML VIAL IV PRN ×2 (05:28→21:21)
--- NOTE | 2019-12-07 06:48 | NUR ---
RN NOTES ALL NEEDS ATTENDED AND MET, PATIENT IN THE BED ASLEEP AT THIS TIME, ON MASK O2-3L.PATIENT HAS NO ACUTE RESPIRATORY DISTRESS, V/S STABLE, PATIENT WAS COMPLAINING OF GENERALIZED PAIN 10/10 PER PAIN SCALE. GOOD CATHETER DRAINING LIGHT YELLOW OUTCOME, AND MIDLINE ON RIGHT UA INTACT. PATIENT OBESE, NO SEIZURE AT THIS TIME, SEIZURE PRECAUTION MAINTAINED ALL THE TIME, PATIENT HAS BILATERAL UPPER KNEE LOWER LEGS AMPUTATION. MINIMAL CARE, ASSIST TURN AND REPOSTION Q 2 HR USING PILLOWS, V/S STABLE, CALL LIGHT WITHIN EASY TO REACH. ALL NEEDS ANTICIPATED, WILL ENDORSE TO AM NURSE FOR CONTINUITY OF CARE
[2019-12-07] MEDS: LEVOTHYROXINE SODIUM 75 MCG TABLET PO SCH (06:55)
--- NOTE | 2019-12-07 07:15 | NUR ---
MS RN OPENING NOTES RECEIVED PATIENT IN BED, AWAKE AT THIS TIME WITH HOB ELEVATED. A/OX 3-4. PT IS ABLE TO VERBALIZE NEEDS. PT ON OXYGEN 3L/MIN VIA SIMPLE MASK. PT APPEARS COMFORTABLE IN BED WITH NO S/S OF ANY ACUTE DISTRESS. RESPIRATIONS ARE EVEN AND UNLABORED. NO S/S SOB NOTED. IV ACCESS IN KARIME MIDLINE INTACT AND PATENT. GOOD CATHETER IS PRESENT, DRAINING TO GRAVITY, CLEAR YELLOW URINE OUTPUT. SEIZURE AND SAFETY PRECAUTIONS IN PLACE AT THIS TIME. BED IN LOWEST LOCKED POSITION, SIDE RAILS UP X3 AND PADDED, CALL LIGHT WITHIN REACH. WILL CONTINUE TO MONITOR.
[2019-12-07] MEDS: INSULIN ASPART/LISPRO 100 UNIT/ML CARTRIDGE SQ SCH ×3 (07:30→18:31)
[2019-12-07] MEDS: BLOOD SUGAR DIAGNOSTIC 1 EACH STRIP VI SCH ×4 (08:22→21:29)
[2019-12-07] MEDS: hydrALAZINE HCL 25 MG TABLET PO SCH ×3 (08:23→17:00)
[2019-12-07] MEDS: CARVEDILOL 12.5 MG TABLET PO SCH ×2 (08:23→17:00)
[2019-12-07] MEDS: oxyCODONE HCL SR 20MG TAB.SR.12H PO SCH ×2 (08:24→21:00)
[2019-12-07] MEDS: CLOTRIMAZOLE 1% 15 GM TUBE TP SCH ×2 (08:28→17:18)
[2019-12-07] MEDS: BACITRACIN/POLYMYXIN B 15 GM TUBE TP SCH ×2 (08:29→17:17)
[2019-12-07] MEDS: TAMSULOSIN 0.4 MG CAP.SR.24H GT SCH (08:29)
[2019-12-07] MEDS: GLUCERNA SHAKE 237 ML CAN PO SCH ×3 (08:29→17:04)
[2019-12-07] MEDS: LEVETIRACETAM (250 MG) 250 MG TABLET PO SCH ×2 (08:30→21:41)
[2019-12-07] MEDS: DIVALPROEX SODIUM 125 MG TABLET.DR PO SCH ×3 (08:30→17:10)
[2019-12-07] MEDS: OXYBUTYNIN CHLORIDE 5 MG TABLET PO SCH ×2 (08:30→17:10)
[2019-12-07] MEDS: FAMOTIDINE (20 MG) 20 MG TABLET PO SCH ×2 (08:30→17:10)
[2019-12-07] MEDS: ASPIRIN EC 81 MG TABLET.DR PO SCH (08:30)
[2019-12-07] MEDS: INSULIN GLARGINE, 100 UNIT/ML CARTRIDGE SQ SCH ×2 (08:31→21:29)
--- NOTE | 2019-12-07 12:47 | NUR ---
MS RN NOTES PATIENT REFUSED VITAL SIGNS TAKEN, ACCU CHECK , MEDICATIONS, INSULIN , REFUSING TO EAT DESPITE OF EXPLANATION OF RISKS AND BENEFITS, DR CHICO SOSA MADE AWARE. NO NEW ORDERS MADE AT THIS TIME. WILL CONTINUE TO MONITOR PATIENT.
[2019-12-07] MEDS: MORPHINE SULFATE INJ 4 MG/ML DISP.SYRIN IV PRN (17:07)
--- NOTE | 2019-12-07 19:01 | NUR ---
MS RN CLOSING NOTES PATIENT IN BED, AWAKE AT THIS TIME WITH HOB ELEVATED. A/OX 3-4. PT IS ABLE TO VERBALIZE NEEDS. PT ON OXYGEN 3L/MIN VIA SIMPLE MASK. PT APPEARS COMFORTABLE IN BED WITH NO S/S OF ANY ACUTE DISTRESS. RESPIRATIONS ARE EVEN AND UNLABORED. NO S/S SOB NOTED. IV ACCESS IN KARIME MIDLINE INTACT AND PATENT. GOOD CATHETER IS PRESENT, DRAINING TO GRAVITY, CLEAR YELLOW URINE OUTPUT. ALL NEED ATTENDED AND ANTICIPATED, PT KEPT CLEAN AND DRY. SEIZURE AND SAFETY PRECAUTIONS IN PLACE AT THIS TIME. BED IN LOWEST LOCKED POSITION, SIDE RAILS UP X3 AND PADDED, CALL LIGHT WITHIN REACH. WILL ENDORSED TO NIGHT SHIP NURSE FOR ZIYAD
--- NOTE | 2019-12-07 19:40 | NUR ---
MS RN: RECEIVED PATIENT Patient in bed, awake. Patient is uncooperative with care per report. On simple mask oxygen 3L, oxygen sat 99%. Offered to use NC, education provided, declined education, patient insisted to use oxygen mask. Refused to be turned and repositioned. Sanchez cath to gravity. Fall precaution maintained. Contact isolation precaution.
[2019-12-07 20:00] VITALS: BP 123/63
[2019-12-07 20:39] VITALS: BP 123/63
--- NOTE | 2019-12-07 21:23 | NUR ---
MS RN: ANXIETY/AGITATION Patient in bed, awake verbally responsive with agitation, upset with new order Morphine every 6 hours. Both hands slapping bed, voicing out he's having seizures and refused new order Oxycontin for pain management. No seizure noted, during slapping bed and voicing seizures, patient remains A/O x4, VSS, no c/o nausea no vomiting. Education provided, declined, stated he will wait for Morphine when its due. PRN Ativan given, will reassess.
[2019-12-08] MEDS: LEVOTHYROXINE SODIUM 75 MCG TABLET PO SCH (06:00)
[2019-12-08] MEDS: MORPHINE SULFATE INJ 4 MG/ML DISP.SYRIN IV PRN ×2 (06:11→13:10)
[2019-12-08] MEDS: BLOOD SUGAR DIAGNOSTIC 1 EACH STRIP VI SCH ×3 (06:18→18:14)
--- NOTE | 2019-12-08 06:30 | NUR ---
MS RN: END OF SHIFT REPORT Patient able to calm down after PRN Ativan, irritable and non compliant with care. Afebrile, intermittent dry cough. Repeat Covid-19 result pending. Uncooperative with hygiene, turn and repositioning. Remains on supplemental Oxygen via simple mask 3L as per patient request, refused NC. Declined all health education, instruction and encouragement. Awaiting placement. Fall; Contact Isolation precaution maintained.
[2019-12-08 07:57] VITALS: BP 147/59
[2019-12-08] MEDS: GLUCERNA SHAKE 237 ML CAN PO SCH ×3 (08:00→18:14)
[2019-12-08] MEDS: FAMOTIDINE (20 MG) 20 MG TABLET PO SCH ×2 (08:42→17:00)
[2019-12-08] MEDS: LEVETIRACETAM (250 MG) 250 MG TABLET PO SCH ×2 (08:42→21:00)
[2019-12-08] MEDS: TAMSULOSIN 0.4 MG CAP.SR.24H GT SCH (08:43)
[2019-12-08] MEDS: hydrALAZINE HCL 25 MG TABLET PO SCH ×3 (08:43→17:00)
[2019-12-08] MEDS: CARVEDILOL 12.5 MG TABLET PO SCH ×2 (08:43→17:00)
[2019-12-08] MEDS: OXYBUTYNIN CHLORIDE 5 MG TABLET PO SCH ×2 (08:43→17:00)
[2019-12-08] MEDS: DIVALPROEX SODIUM 125 MG TABLET.DR PO SCH ×3 (08:43→17:00)
[2019-12-08] MEDS: ASPIRIN EC 81 MG TABLET.DR PO SCH (08:43)
[2019-12-08] MEDS: oxyCODONE HCL SR 20MG TAB.SR.12H PO SCH (08:44)
[2019-12-08] MEDS: INSULIN GLARGINE, 100 UNIT/ML CARTRIDGE SQ SCH ×2 (08:46→21:00)
[2019-12-08] MEDS: INSULIN ASPART/LISPRO 100 UNIT/ML CARTRIDGE SQ SCH ×3 (08:46→17:30)
[2019-12-08] MEDS ORDERED: MORPHINE SULFATE SR 15 MG TABLET.SA PO SCH ×2 (09:00)
[2019-12-08] MEDS: CLOTRIMAZOLE 1% 15 GM TUBE TP SCH ×2 (09:09→17:00)
[2019-12-08] MEDS: BACITRACIN/POLYMYXIN B 15 GM TUBE TP SCH ×2 (09:09→17:00)
[2019-12-08] MEDS ORDERED: oxyCODONE HCL SR 20MG TAB.SR.12H PO ONE (09:30)
--- NOTE | 2019-12-08 12:05 | NUR ---
RN note: AccuCheck Refusal Patient refused Accucheck prior to lunch stating "No. I don't want it". Patient is noticeably irritable. Education provided and multiple attempts made to administer. Charge nurse notified. Charge nurse attempted to talk to patient to provide more education but patient continues to refuse Accucheck administration. Will continue to monitor.
--- NOTE | 2019-12-08 16:57 | NUR ---
RN note: Report given to Milagros PABLO, at [facility] . Verified Med Reconciliation received.
[2019-12-08 17:00] VITALS: BP 138/78
[2019-12-08] MEDS: LORAZEPAM INJ 2 MG/ML VIAL IV PRN (18:11)
--- NOTE | 2019-12-08 18:12 | NUR ---
Ativan administrated per pt request.
--- NOTE | 2019-12-08 18:30 | NUR ---
Patient cleared for discharge by MD . Patient awake alert and orientedx4 , bedbound, B/L AKA. [facility] VS are stable and within base line. Patient non-compliant and has jacquie refusing meds and nursing care. Patient refused d/c pictures and refused to sigh paperwork. Patient sighed valuable form and all belongings with the patient. Midline removed , no bleeding at the site. Patient refused d/c instructions and teaching.
--- NOTE | 2019-12-08 18:45 | NUR ---
Patient needs to be transported via bariatric gurney due to weight. Ambulance will come back with the proper gurney.
--- NOTE | 2019-12-08 19:00 | NUR ---
MS/RN OPENING NOTES: RECEIVED PT. STABLE. A/OX4. TO BE DC TONIGHT. ALL PAPERS SIGNED AND READY. PT REFUSES TEACHING AND PICTURES. PT REFUSES SKIN ASSESSMENT AND VITAL SIGNS. VERY NON COMPLIANT. WILL CONTINUE TO MONITOR.
--- NOTE | 2019-12-08 20:30 | NUR ---
MS/RN NOTES: PARAMEDICS FROM [facility] ARRIVED TO THE HOSPITAL. PT. STILL REFUSING TO HAVE HIS VITALS TAKEN. DEMANDS HE NEEDS NITRO IN CASE HE GETS HEADACHE OR CHEST PAIN. EXPLAINED TO THE PT. THE PROTOCOL OF THE HOSPITAL THAT WE HAVE TO GET HIS VITAL SIGNS CHECKED BEFORE LEAVING. EXPLAINED TO PT, I WILL CONTACT DR. GOLDEN.
--- NOTE | 2019-12-08 20:57 | NUR ---
MS/RN NOTES: SPOKE TO DR. GOLDEN REGARDING PT'S CONCERN ABOUT GETTING NITROGLYCERIN AND FLEXERIL, AND INCREASING HIS MORPHINE DOSE. ER DR. GOLDEN "ORDER FLEXERIL 10MG PO Q8 PRN., NOTHING ELSE WE CAN DO" PT. SPOKE TO DR GOLDEN. VERY UPSET AND CLAIMING HE WILL END UP COMING BACK TO THE HOSPITAL.
--- NOTE | 2019-12-08 20:59 | NUR ---
MS/RN NOTES: PT. REFUSES FLEXERIL, PER PT. "THAT IS NOT GOING TO DO ANYTHING. I'M NOT GONNA TAKE IT". PT. STABLE. VS WNL, WILL CONTINUE MONITORING.
[2019-12-08] MEDS ORDERED: CYCLOBENZAPRINE 10 MG TABLET PO PRN (21:00)
[2019-12-08] MEDS ORDERED: oxyCODONE HCL SR 20MG TAB.SR.12H PO SCH (21:00)
--- NOTE | 2019-12-08 21:03 | NUR ---
MS/RN NOTES: PT. REFUSES HIS MEDS. EXPLAINED RISKS AND BENEFITS, STILL REFUSED.
--- NOTE | 2019-12-08 21:11 | NUR ---
MS/HAND STITCHER NOTES: PT. LEFT THE UNIT VIA GURNEY WITH EMT FROM [facility]. TO BE TRANSFERRED TO [facility]. VS TAKEN. BP: 134/72. HR:78. TEMP:98.7. O2SAT: 99. PT. REFUSES TEACHING AND DISCHARGE PICTURES. DISCHARGE PACKET SIGNED, BELONGINGS LIST SIGNED, PT. LEFT IN STABLE CONDITION.
--- NOTE | 2019-12-08 21:16 | NUR ---
MS/RN OPENING NOTES: RECEIVED PTMatt CHERY. TO BE DC TONJD. ALL PAPERS SIGNED AND READY. PT REFUSES TEACHING AND PICTURES. PT REFUSES SKIN ASSESSMENT AND VITAL SIGNS. VERY NON COMPLIANT. WILL CONTINUE TO MONITOR. Addendum: 12/08/19 at 2118 by APRIL MANTILLA RN DISREGARD. WRONG TIME.
== END 2019-12-08 21:10 | DRG 193 ==
LOC: ER 07:10 → TELE1 12:06 → MEDSG1 11-29 10:58 → MED 12-01 16:00
PROVIDERS: ADMIT Internal Medicine; ATTEND Internal Medicine
PROC: 05HD33Z Insertion of Infusion Device into Right Cephalic Vein, Percutaneous Approach (ICD-10-PCS; principal; 2019-11-28)
DX: J15.9 Unspecified bacterial pneumonia (principal); R53.2 Functional quadriplegia; E66.9 Obesity, unspecified; E03.9 Hypothyroidism, unspecified; I10 Essential (primary) hypertension; G40.909 Epilepsy, unspecified, not intractable, without status epilepticus; Z79.4 Long term (current) use of insulin; E83.42 Hypomagnesemia; G89.29 Other chronic pain; N20.0 Calculus of kidney; N32.81 Overactive bladder; Z89.611 Acquired absence of right leg above knee; Z98.890 Other specified postprocedural states; Z89.612 Acquired absence of left leg above knee; Z88.6 Allergy status to analgesic agent; Z91.011 Allergy to milk products; Z91.018 Allergy to other foods; Z79.82 Long term (current) use of aspirin; Z79.899 Other long term (current) drug therapy; Z88.8 Allergy status to other drugs, medicaments and biological substances; Z91.048 Other nonmedicinal substance allergy status; I73.9 Peripheral vascular disease, unspecified; Z79.890 Hormone replacement therapy; D72.810 Lymphocytopenia; E11.51 Type 2 diabetes mellitus with diabetic peripheral angiopathy without gangrene
CPT/HCPCS: 36410; 36415; 71045-TC; 71250-TC; 80048-TC; 80053-TC; 80076-TC; 80177; 81000-TC; 82962-TC; 83605-TC; 83735-TC; 83880; 84484-TC; 85025-TC; 85730-TC; 87040-TC; 87081-TC; 87086-TC; A4217; G0378; J0696; J1815; J1953; J2060; J2270; J2405; J3475; J3490; J7030; J7050

== ENCOUNTER 2020-05-31 23:28 | Emergency (ER) | payer MEDICARE, OTHER ==
[~2020-05-31] VITALS: Ht 109.2 cm; Wt 138.3 kg
[~2020-05-31 23:28] MED LIST changes: -ASPI-605 PO; +BISA10SU11 RC; +CLON0.2T PO; +CRAN450C PO; +CYCL10TA9 PO; -DIVA500T2 GT; +DIVA500T2 PO; +DOCU-141 PO; -ERTA1VIA4 IJ; -FAMO20TA8 PO; -GLARGINE SUBCUT; +HEPA50008 SQ; +IBUP-1955 PO; +INSU100I26 SQ; +INSU100V27 SQ; -LISPRO SUBCUT; +MAGN400O6 PO; +NA P133E RC; +PRAV10TA40 PO; +SENN-261 PO; -TAMS-12 GT; +TAMS-12 PO
[2020-05-31 23:30] VITALS: BP 149/77
--- NOTE | 2020-06-01 01:21 | NUR ---
PATIENT TURNED AND CLEANED.
--- NOTE | 2020-06-01 01:37 | NUR ---
Patient given written and verbal discharge instructions. Patient verbalizes understanding of instructions. Patient is using his wheel chair. Refuses offer of alf placement. Patient given list of available shelters in surrounding area.
== END 2020-06-01 01:37 | disposition home or self-care (01) ==
LOC: ER 23:28
DX: L98.498 Non-pressure chronic ulcer of skin of other sites with other specified severity (principal); E66.01 Morbid (severe) obesity due to excess calories; I10 Essential (primary) hypertension; E11.9 Type 2 diabetes mellitus without complications; Z68.45 Body mass index [BMI] 70 or greater, adult; Z99.3 Dependence on wheelchair; Z89.612 Acquired absence of left leg above knee; Z89.611 Acquired absence of right leg above knee; Z98.890 Other specified postprocedural states; Z91.013 Allergy to seafood; Z91.018 Allergy to other foods; Z88.6 Allergy status to analgesic agent; Z88.8 Allergy status to other drugs, medicaments and biological substances; Z60.2 Problems related to living alone; Z79.4 Long term (current) use of insulin; Z79.899 Other long term (current) drug therapy

== ENCOUNTER → 2020-06-04 | Emergency (ER) | payer SELFPAY ==
[~2020-06-04] VITALS: Ht 121.9 cm; Wt 136.5 kg
[~2020-06-04] MED LIST changes: +CEFTRIAXONE 1GM BAG (ER ONLY) 1 GM/50 ML PIGGYBACK IV ONE; +CEFTRIAXONE 1GM BAG (ER ONLY) 50 ML IV ONE; +INSULIN REGULAR, HUMAN 100 UNIT/ML 10 ML VIAL ONE; +INSULIN REGULAR, HUMAN 100 UNIT/ML 10 ML VIAL SQ ONE; +IV NS 0.9% 1,000 ML BAG IV ONE; +MORPHINE SULFATE INJ 2 MG/ML DISP.SYRIN IV ONE; +MORPHINE SULFATE INJ 4 MG/ML DISP.SYRIN ONE; +ONDANSETRON HCL/PF 4 MG/2 ML VIAL IVP ONE; +ONDANSETRON HCL/PF 4 MG/2 ML VIAL ONE
--- NOTE | 2020-06-04 16:20 | NUR ---
patient came in to the er c/o told by paramedics and lapd to come to hospital due to syncopal episode while in his wheelchair, high sugar 570, and rod cath leaking. On room air, breathing evenly and unlabored. on rod cath leaking per patient. Kept comfortable, will continue to monitor accordingly.
--- NOTE | 2020-06-04 17:01 | NUR ---
Patient is well-known to this SW. Per patient, he would like placement but does not want to leave his wheelchair behind. Per patient, is agreeable to be transferred to [facility] if wheelchair can be taken at the same time. This SW informed patient that it is not possible because there is no room in the ambulance to transfer the patient. Patient stating "this chair is my livelihood, I cannot leave without it." SW explained again to this patient that transport will be arranged for the chair but will not likely happen simultaneously, that he can take a few belongings with him until the chair arrives and that the chair will be stored here at [facility]. Patient stating he would like to be referred to a correction that accepts patients with wheelchairs. Patient however is unable to provide name of this correction. SW would like to refer patient to a correction but most shelters do not take wheelchair patients. SW to speak to RN's and Case Management team regarding this patient.
--- NOTE | 2020-06-04 17:05 | NUR ---
This SW spoke with case management team who is also familiar with this patient. They will refer patient to [facility] again for placement. Patient has to be agreeable to leave wheelchair behind to be transported after him.
--- NOTE | 2020-06-04 17:06 | NUR ---
PREFINISH OPERATORHAFSA Young spoke with ER Admitting regarding patient showing as "" ER admitting is following up with [facility] regarding this. Case Management aware of this as well.
--- NOTE | 2020-06-04 17:08 | NUR ---
After ED Admitting contacts ED RN providing update on insurance, ED RN to follow up with case management at ext [phone] or [phone].
[2020-06-04 17:14] LABS: CALCIUM, SERUM 9.1 mg/dL (8.5-10.1); CARBON DIOXIDE 22 mmol/L (21-32); CHLORIDE 97 mmol/L (98-107); SODIUM SERUM 131 mmol/L (136-145); UREA NITROGEN, BLOOD 11 mg/dL (7-18)
[2020-06-04 17:16] LABS: GLUCOSE 425 mg/dL (74-106)
--- NOTE | 2020-06-04 17:18 | NUR ---
accepted at [facility] [address],tel [phone] after insurance is verified. they want him to be transported without the wheelchair. the facility will make arrangements to brick picker the wheelchair per [place] CRE[employer] BEATER and Case management.
[2020-06-04 17:20] LABS: ALANINE AMINOTRANSFERASE 13 U/L (12-78); ALBUMIN 2.6 g/dL (3.4-5.0); ALKALINE PHOSPHATASE 66 U/L (46-116); ASPARTATE AMINOTRANSFERASE 11 U/L (15-37); BILIRUBIN,TOTAL 0.2 mg/dL (0.2-1.0); TOTAL PROTEIN, SERUM 6.8 g/dL (6.4-8.2)
[2020-06-04 17:23] LABS: APPEARANCE,URINE SL CLOUDY (CLEAR); BILIRUBIN,URINE NEGATIVE (NEGATIVE); BLOOD, URINE TRACE-INTA Ery/uL (NEGATIVE); COLOR,URINE YELLOW (YELLOW); KETONES,URINE NEGATIVE (NEGATIVE); LEUKOCYTE ESTERASE ,URINE NEGATIVE (NEGATIVE); NITRITE, URINE POSITIVE (NEGATIVE); PROTEIN,URINE 30 mg/dl (NEGATIVE); UGLUCOSE >=1000 mg/dL (NEGATIVE); UROBILINOGEN,URINE 0.2 EU/dL (0.2)
[2020-06-04 17:24] LABS: BASOPHILS # (AUTO) 0.1 /CMM (0.0-0.2); BASOPHILS % (AUTO) 0.7 % (0.0-2.0); EOSINOPHILS % (AUTO) 3.7 % (0.0-6.0); HEMATOCRIT 38 % (39-51); HEMOGLOBIN 12.1 g/dL (13.5-17.5); LYMPHOCYTES % (AUTO) 24.1 % (20.0-44.0); MEAN CORPUSCULAR HGB CONC 32 g/dl (31.0-36.0); MEAN CORPUSCULAR VOLUME 74 fL (80-96); MONOCYTES # (AUTO) 0.9 /CMM (0.1-1.30); MONOCYTES % (AUTO) 6.8 % (2.0-12.0); NEUTROPHILS # (AUTO) 8.1 /CMM (1.8-8.9); NEUTROPHILS % (AUTO) 64.7 % (43.0-81.0); PLATELET COUNT (AUTO) 273 /CMM (150-450); RED BLOOD CELL COUNT(AUTO) 5.07 MIL/uL (4.5-6.0); WHITE BLOOD COUNT (AUTO) 12.6 K/uL (4.3-11.0)
[2020-06-04 17:55] LABS: BACTERIA,URINE Many /HPF (None Seen); SQUAMOUS EPITHELIAL CELL,UR Rare /HPF (None Seen); TRIPLE PHOSPHATE CRYSTAL,UR Moderate /HPF (None Seen); URINE AMORPHOUS PHOSPHATES Many /HPF (None Seen)
[2020-06-04 18:00] LABS: BAND % (MANUAL) 3 % (0.0-5.0); EOSINOPHILS % (MANUAL) 6 % (0-4); LYMPHOCYTES % (MANUAL) 29 % (16-48); MONOCYTES % (MANUAL) 8 % (0-11.0); NEUTROPHILS % (MANUAL) 54 (42-76)
[2020-06-04 19:43] VITALS: BP 144/68
--- NOTE | 2020-06-04 19:43 | NUR ---
Patient does not wish to proceed with medical care recommended by Javier SUGGS. Patient given information related to possible complications, up to and including , which could occur as a result of leaving the hospital at this time. Patient verbalizes understanding of risks involved due to leaving against medical advice. Patient has signed AMA form. Patient verbalized "i don't want to go to [place]", explained the risk and benefits x 3 and still refused. MD notified and aware. Left in no distress
--- NOTE | 2020-06-04 19:45 | NUR ---
unable to depart due to meditech problem
== END | disposition home or self-care (01) ==
LOC: ER 16:00
DX: E11.65 Type 2 diabetes mellitus with hyperglycemia (principal); N39.0 Urinary tract infection, site not specified; E66.01 Morbid (severe) obesity due to excess calories; I10 Essential (primary) hypertension; G40.909 Epilepsy, unspecified, not intractable, without status epilepticus; Z98.890 Other specified postprocedural states; Z89.612 Acquired absence of left leg above knee; Z89.611 Acquired absence of right leg above knee; Z91.013 Allergy to seafood; Z91.018 Allergy to other foods; Z88.6 Allergy status to analgesic agent; Z88.8 Allergy status to other drugs, medicaments and biological substances; Z60.2 Problems related to living alone; Z79.899 Other long term (current) drug therapy; Z79.4 Long term (current) use of insulin; Z68.45 Body mass index [BMI] 70 or greater, adult
CPT/HCPCS: 36415; 51702; 71045; 80048; 80076; 81001; 82962; 84484; 85007; 85025; 87086; 93005; 96361; 96365; 96372; 96375; 99285; J0696; J1815; J2270; J2405; J7030 ×2; 81000-TC

== ENCOUNTER 2020-06-05 11:06 | Emergency (ER) | payer SELFPAY ==
[~2020-06-05 11:06] MED LIST changes: -CEFTRIAXONE 1GM BAG (ER ONLY) 1 GM/50 ML PIGGYBACK IV ONE; -CEFTRIAXONE 1GM BAG (ER ONLY) 50 ML IV ONE; -INSULIN REGULAR, HUMAN 100 UNIT/ML 10 ML VIAL ONE; -INSULIN REGULAR, HUMAN 100 UNIT/ML 10 ML VIAL SQ ONE; -IV NS 0.9% 1,000 ML BAG IV ONE; -MORPHINE SULFATE INJ 2 MG/ML DISP.SYRIN IV ONE; -MORPHINE SULFATE INJ 4 MG/ML DISP.SYRIN ONE; -ONDANSETRON HCL/PF 4 MG/2 ML VIAL IVP ONE; -ONDANSETRON HCL/PF 4 MG/2 ML VIAL ONE
--- NOTE | 2020-06-05 11:10 | NUR ---
ER BED 12 PT CAME IN. CHIEF COMPLAINT OF SYNCOPE. VS CHECKED BS CHECKED NOTED 339. HOOKED ON MONITOR. AWAITING MD CARL.
[2020-06-05] MEDS ORDERED: INSULIN REGULAR, HUMAN 100 UNIT/ML 10 ML VIAL SQ ONE (11:30)
[2020-06-05] MEDS ORDERED: TRAMADOL HCL 50 MG TABLET ONE (11:47)
[2020-06-05] MEDS ORDERED: INSULIN REGULAR, HUMAN 100 UNIT/ML 10 ML VIAL ONE (11:48)
[2020-06-05] MEDS: TRAMADOL HCL 50 MG TABLET PO ONE ×2 (11:49→11:54)
--- NOTE | 2020-06-05 11:54 | NUR ---
TRAMADOL PT REFUSED TRAMADOL Addendum: 06/05/20 at 1155 by DCABANOS MD AWARE
[2020-06-05 12:19] LABS: BASOPHILS % (AUTO) 0.2 % (0.0-2.0); EOSINOPHILS % (AUTO) 4.7 % (0.0-6.0); HEMATOCRIT 38 % (39-51); HEMOGLOBIN 12.2 g/dL (13.5-17.5); LYMPHOCYTES # (AUTO) 2.3 /CMM (0.8-4.8); LYMPHOCYTES % (AUTO) 22.8 % (20.0-44.0); MEAN CORPUSCULAR HGB CONC 32 g/dl (31.0-36.0); MEAN CORPUSCULAR VOLUME 76 fL (80-96); MONOCYTES # (AUTO) 0.7 /CMM (0.1-1.30); MONOCYTES % (AUTO) 6.8 % (2.0-12.0); NEUTROPHILS # (AUTO) 6.5 /CMM (1.8-8.9); NEUTROPHILS % (AUTO) 65.5 % (43.0-81.0); PLATELET COUNT (AUTO) 267 /CMM (150-450); RED BLOOD CELL COUNT(AUTO) 4.97 MIL/uL (4.5-6.0); WHITE BLOOD COUNT (AUTO) 9.9 K/uL (4.3-11.0)
[2020-06-05 12:32] LABS: CALCIUM, SERUM 8.6 mg/dL (8.5-10.1); CREATININE 0.8 mg/dL (0.6-1.3); POTASSIUM 4.2 mmol/L (3.5-5.1)
--- NOTE | 2020-06-05 12:46 | NUR ---
Patient known to this SW. SW met with the patient yesterday 06/04. Patient was accepted at [facility] pending insurance [id number] [id number],tel [phone] . [place] informed this SW and case management that [place] needs to be transported without the wheelchair. Per patient did not want to leave without wheelchair. Patient signed AMA form. This SW consulted with Finn Bernstein LCSW regarding next steps with the patient. Per JAZ Briseno to speak with MD about making a document stating that the patient is not and to fax that to patient's insurance [employer] to transport him to [facility]. If this does not work out per LYNDA Briseno to refer this patient to [address] [place] [address] to assist the patient in arranging information regarding their insurance and possible placement with the wheelchair without insurance.
--- NOTE | 2020-06-05 13:00 | NUR ---
PT WAS GIVEN LUNCH
[2020-06-05 13:14] LABS: APPEARANCE,URINE Clear (CLEAR); BILIRUBIN,URINE Negative (NEGATIVE); BLOOD, URINE Moderate Ery/uL (NEGATIVE); COLOR,URINE Yellow (YELLOW); KETONES,URINE Negative (NEGATIVE); LEUKOCYTE ESTERASE ,URINE Small (NEGATIVE); NITRITE, URINE Negative (NEGATIVE); PROTEIN,URINE >=300 mg/dl (NEGATIVE); UGLUCOSE >=1000 mg/dL (NEGATIVE); UROBILINOGEN,URINE 0.2 EU/dL (0.2)
[2020-06-05 13:20] LABS: BACTERIA,URINE Rare /HPF (None Seen); SQUAMOUS EPITHELIAL CELL,UR Rare /HPF (None Seen)
--- NOTE | 2020-06-05 14:07 | NUR ---
Patient provided information information to this SW about Social Security. Per patient, he had spoken to [facility] Medical Records today. Per patient, information regarding last stays needed to be faxed over to social security office. Patient provided this with that information ATTN: Miss Zuñiga fax#: . Patient to follow up with Medical Records to find out more information.
--- NOTE | 2020-06-05 14:13 | NUR ---
Per Medical Records, patient information has been released to Social Security. SW to provide patient with this update for patient to follow up with Social Security individually.
--- NOTE | 2020-06-05 16:00 | NUR ---
PT WAS GIVEN SNACKS
--- NOTE | 2020-06-05 17:00 | NUR ---
PT IN NO DISTRESS. SLEEPING. WASILY AORUSABLE
--- NOTE | 2020-06-05 20:33 | NUR ---
Patient given written and verbal discharge instructions. Patient verbalizes understanding of instructions. Pt refuses to sign d/c papers. Patient is ambulatory with steady gait. Refuses offer of [facility] placement. Patient given list of available shelters in surrounding area.
[2020-06-05 20:36] VITALS: BP 131/86
== END 2020-06-05 20:37 | disposition home or self-care (01) ==
LOC: ER 11:10
DX: E11.65 Type 2 diabetes mellitus with hyperglycemia (principal); I10 Essential (primary) hypertension; G40.909 Epilepsy, unspecified, not intractable, without status epilepticus; Z98.890 Other specified postprocedural states; Z89.612 Acquired absence of left leg above knee; Z89.611 Acquired absence of right leg above knee; Z91.013 Allergy to seafood; Z91.018 Allergy to other foods; Z88.6 Allergy status to analgesic agent; Z88.8 Allergy status to other drugs, medicaments and biological substances; Z60.2 Problems related to living alone; Z79.899 Other long term (current) drug therapy; Z79.4 Long term (current) use of insulin; Z99.3 Dependence on wheelchair
CPT/HCPCS: 36415; 80048; 81001; 85025; 96372; 99283; J1815; 81000-TC